=== PATIENT | female | born 1970 | race Caucasian/White ===

== ENCOUNTER 2019-03-11 08:51 | Inpatient (IN) | payer OTHER, MEDICAID, SELFPAY ==
[2019-02-07 13:39] VITALS: BMI 25.2
[2019-03-11] VITALS (28 sets, daily range): BP systolic 62–149; BP diastolic 30–85; PULSE 40–92; RESP 8–20; TEMP 36.2–37.2; O2SAT 95–100; BMI 25.2
--- NOTE | 2019-03-11 | PATH_ITS ---
[facility] Accession Number: [id number] . 01 Material submitted: . PART A: uterus - UTERINE FIBROID PART B: uterus - UTERUS AND BILATERAL FALLOPIAN TUBES . 02 Diagnosis: A. Uterine Fibroid, Excision (Weight 1,127 Grams): Leiomyoma with patchy hyalinization (18.5 x 13.8 x 9.7 cm). Negative for atypia or malignancy. . B. Uterus And Bilateral Fallopian Tubes, Hysterectomy And Bilateral Salpingectomy (Weight 833 Grams): Proliferative endometrium; negative for glandular hyperplasia, cytologic atypia, or malignancy. Intramural leiomyoma (6.2 cm in greatest dimension); negative for atypia or malignancy. Uterine serosa with no significant histomorphologic abnormality. Fallopian tube #1 with no significant histomorphologic abnormality. Fallopian tube #2 with no significant histomorphologic abnormality.. . . . . . I 03/18/2019 1100 Local . 02 Electronically signed: . Karissa Angel MD, Pathologist NPI- [id number] . 01 Gross description: . (A) Received in formalin, labeled uterine fibroid, is a dasilva-white rubbery mass (1,127 grams, 18.5 x 13.8 x 9.7 cm) with a white whorled homogenous cut surface. Ichthyology Teacher tissue is submitted in cassettes A1-A10. (B) Received in formalin, labeled uterus + bilateral fallopian tubes, is a uterus (833 grams, 7.5 cm AP, 15.5 cm SI, 13.0 cm ML) with attached fimbriated fallopian tubes (tube #1: length-6.8 cm, diameter-0.4 cm; tube #2: length-6.3 cm, diameter-0.4 cm). The cervix and ovaries are absent. The specimen is distorted, and the anterior and posterior cannot be determined. The endometrium (average thickness-0.2 cm) is gray-white smooth and flat. The myometrium (thickness-3.5 cm) is gray-white and contains a solid firm white whorled well-circumscribed homogenous mass (6.2 x 5.0 x 3.5 cm). The serosa is dasilva-gray smooth and shiny. The fallopian tubes have gray smooth and shiny serosa and gray unremarkable lumens. Section code: (B1-B4) endomyometrium; (B5-B7) endomyometrium, opposite side; (B8) fallopian tube #1, sales representative malt liqu[employer] serial sections; (B9-B10) fimbria #1, bivalved, entirely submitted; (B11) fallopian tube #2, sales representative malt liquors serial section; (B12-B13) fimbria #2, bivalved, entirely submitted. ([id number]) /[facility] 03/15/[address] [place] [address] . Pathologist provided ICD-10: D25.9 . 02 CPT . 195607, [id number] Performed at: 01 [facility] [address] [place] [address], [place], [place] [id number] MD Len Mckeon MD Phone: [phone] Performed at: 02 [facility] [address] [place] [id number] MD Sarah Fuller MD Phone: [phone]
[2019-03-11] MEDS: LACTATED RINGERS 1,000 ML 42 ML IV ×3 (09:24→13:16)
[2019-03-11] MEDS: SCOPOLAMINE 1 PATCH TOP (09:28)
[2019-03-11] MEDS: CEFAZOLIN 2 GM/100 ML FROZ.PIGGY IV (10:15)
--- NOTE | 2019-03-11 10:33 | SUR.OPER ---
Supine on padded OR bed, head on pillow, arms secured on padded arm boards at <90 degrees abduction, legs uncrossed, safety belt at thigh, tape over blanket over lower legs.
[2019-03-11] MEDS: SODIUM CHLORIDE 0.9% 30 ML, VASOPRESSIN 20 UNIT INJ (10:39)
--- NOTE | 2019-03-11 12:13 | SUR.PHASEI ---
Arrived with airway, 02 added, airway out. Breathing nonlabored. pt medicated for pain.
--- NOTE | 2019-03-11 12:18 | SUR.PHASEI ---
Report attempted, RN not available.
--- NOTE | 2019-03-11 12:23 | SUR.PHASEI ---
Hailey called back, report given
[2019-03-11] MEDS: METOCLOPRAMIDE 10 MG/2 ML INJ IV (12:31)
[2019-03-11] MEDS: ONDANSETRON 4 MG/2 ML INJ IV ×2 (12:37→16:04)
--- NOTE | 2019-03-11 12:40 | SUR.PHASEI ---
Pt became nauseated when ready for transfer, BP low and HR low, treated with IV fluid, cool wash cloth to head and queaze ease to bedside, HOB lowered. BP gradually came up. In talking with pt, she stated she gets car sick easily and has a hx of post op nausea.
[2019-03-11] MEDS: HYDROMORPHONE 2 MG INJ IV (13:06)
--- NOTE | 2019-03-11 13:14 | SUR.PHASEI ---
BP, HR back to normal, shakes started, bare hugger applied, and now resolved, pt had increased pain with shakes and pain treated with Dilaudid.
--- NOTE | 2019-03-11 13:21 | SUR.PHASEI ---
Pain improved, belly remains soft, abdominal dressing c/d/i as well as peripad.
--- NOTE | 2019-03-11 13:56 | SUR.PHASEI ---
Pt transported upstairs to room 221 and left in stable condition.
[2019-03-11] MEDS: LACTATED RINGERS 1,000 ML 100 ML IV (14:00)
--- NOTE | 2019-03-11 14:16 | PC.NURSE ---
Addendum entered by Jaylene Mcmahon R.N. 03/11/19 14:29: Pt has a roberts catheter that is patent and draining yellow urine. Original Note: Assess- Pt is a&ox3. Up to floor at 1345. Patient having some nausea down stairs and shakes. Was given zofran and reglan at 1230. Pt also has queezies at bed side. She has an aquacel dressing to her lower abdomen that is clean, dry, and intact. Dara Pad also in place without drainage. She states that she does have nausea at times, emesis bag at bedside. Patient has bear hugger applied to her for warmth and pacu will be up to get this later on today. IVF is LR and infusing through iv to r.side. Tolerating well. Patient has no other skin issues accept for aquacel dressing and dara pad in place. She is comfortable now. Down in pacu pts bp low. Stable now, given a sip of water and she has her at bedside.
[2019-03-11] MEDS: LACTATED RINGERS 1,000 ML 1000 ML IV ×2 (15:50→22:26)
[2019-03-11] MEDS: OXYCODONE/ACETAMINOPHEN 5/325 TABLET 2 TAB PO ×2 (16:01→20:33)
[2019-03-11] MEDS: KETOROLAC 30 MG/ML VIAL IV (17:04)
[2019-03-11] MEDS: LACTATED RINGERS 500 ML 1000 ML IV (18:15)
[2019-03-11] MEDS: HYDROMORPHONE 0.5 MG INJ IV (18:15)
[2019-03-11] MEDS: DOCUSATE 250 MG CAPSULE PO (20:35)
[2019-03-11 22:16] LABS: Hematocrit 28.4 % (36-46); Hemoglobin 9.5 g/dL (12.0-16.0)
[2019-03-11 22:37] LABS: B Type Natriuretic Peptide < 100 (<100)
[2019-03-12] VITALS (7 sets, daily range): BP systolic 94–118; BP diastolic 49–67; PULSE 58–87; RESP 16–18; TEMP 36.4–37.1; O2SAT 95–97
[2019-03-12] MEDS: LACTATED RINGERS 1,000 ML 125 ML IV ×2 (00:04→07:53)
[2019-03-12] MEDS: KETOROLAC 30 MG/ML VIAL IV ×2 (02:01→12:52)
[2019-03-12] MEDS: OXYCODONE/ACETAMINOPHEN 5/325 TABLET 2 TAB PO ×2 (02:40→07:44)
[2019-03-12 05:36] LABS: Add Manual Diff / Slide Review NO; Basophils Absolute Auto 0 /uL (0-100); Basophils Percent Auto 0.1 % (0-2); Eosinophils Absolute Auto 0 /uL (0-450); Eosinophils Percent Auto 0.1 % (2-4); Hematocrit 26.2 % (36-46); Hemoglobin 8.8 g/dL (12.0-16.0); Lymphocytes Absolute Auto 1900 /uL (1100-4500); Lymphocytes Percent Auto 13.2 % (25-40); Mean Corpuscular HGB Conc 33.5 % (30-36); Mean Corpuscular Volume 92.4 fL (80-100); Monocytes Absolute Auto 1000 /uL (0-900); Monocytes Percent Auto 7.2 % (3-14); Neutrophils Absolute Auto 11100 /uL (1500-7000); Neutrophils Percent Auto 79.4 % (50-75); Platelet Count 230 X10^3/uL (150-400); Red Blood Cell Count 2.84 X10^6/uL (4.0-5.2); Red Cell Distribution Width 13.2 % (11.6-14.8)
[2019-03-12] MEDS: LEVOTHYROXINE 88 MCG TABLET PO (05:39)
--- NOTE | 2019-03-12 06:19 | PC.NURSE ---
Requested not to discontinue her roberts this morning, states will take it out once I start moving more or get OOB latecont. POC & montr on this morning. No vaginal bleeding noted, no C/O abdominal cramping. Reported still painful when I repositioned. Will cont. POC & monitor.
--- NOTE | 2019-03-12 08:04 | PC.NURSE ---
Addendum entered by Doreen Angulo R.N. 03/12/19 14:12: GI/PAIN - lying in bed on l side, states has been passing flatus, abd, r shoulder discomfort 5-6 on scale 0/10, prefers to wait and use narcotic if needed later night, given 650mg po tylenol now. Addendum entered by Doreen Angulo R.N. 03/12/19 13:01: MS/PAIN - Dr. Mclaughlin in while pt very slowly mobilizing from chair back to bed, still limited po, applesauce, fluids, Dr. Mclaughlin in and prefers pt have toradol and will add scheduled ibuprofen and limit narcotics, pt states abd discomfort 4 on scale 0/10, pt r shoulder referred discomfort 9/10 when up moving, when repositioned comfort, given 30mg iv toradol, per Dr. Mclaughlin, decr ivf to 75ml/hr and will leave in roberts overnight and order dc for tomorrow am, pt has own ice pack for her binder that is ok'd by and it was placed in refrig (not freezer per MD) and pt can put it in the pouch of her binder. Addendum entered by Doreen Angulo R.N. 03/12/19 10:52: MS/PAIN - pt able sleep after percocet, when awakened, discussed mobilization, pt is very reluctant and anxious to get oob, discussed mobilizing slowly with assistance, pt had brought in her own binder and requested it be placed on her abd, also with splint, very slowly repositioned to dangle position and very slowly stood w/fww to steady, reports some initial dizziness when up, able to take a few steps to chair, bp 106.60, hr 60, ra 97% Original Note: AM NOTE - pt is awake, using splint, states abd discomfort 4 on scale 0/10, req percocet, declines the toradol as she states was informed by nursing staff has a 4 dose limit and wants to save for future, discussed advising rn if needed as md can be contacted, dale earlier yogurt and applesauce during night, no nausea, +bt, no flatus yet, given percocet po x 2 tabs with applesauce, scd on, hr reg 68, ra 96%, roberts w/clear, pale yellow urine, discussed mobilization after breakfast to chair.
[2019-03-12] MEDS: DOCUSATE 250 MG CAPSULE PO ×2 (10:06→21:41)
--- NOTE | 2019-03-12 12:57 | P.OP_ITS ---
Operative Date/Time/Diagnoses Date of procedure: 03/11/19 Time of procedure: 12:45 Pre-op diagnosis: Pelvic pain Enlarged fibroid uterus Menorrhagia Anemia Post-op diagnosis: same Procedure & Clinicians Procedure: Procedures Operation Date: 03/11/19 10:00 Actual Procedures Side Surgeon p Abdominal Open Supracervical Hysterectomy W/ Removal of Both Tubes Alejandra Mclaughlin MD Indications: Menorrhagia Anemia Enlarged fibroid uterus Pelvic pain Surgeon: Alejandra Mclaughlin [employer] Membership Sales Agent: Piper Cowart Anesthesia Type: General Operative Notes Findings: Twenty week size multi fibroid uterus Right ovarian cyst measuring 2.5 cm Normal tubes Normal left ovary Largest fibroid measuring 15 x 10 cm Normal appendix Closure Type: primary Specimen(s): left tube, right tube and uterus Applied: catheter (To continuous drainage) Estimated blood loss (mL): 250 Blood products transfused: none Procedure in detail: The patient was taken to the operating room where she was placed in the dorsal supine position. After adequate general endotracheal anesthesia was achieved, she was prepped and draped in the usual sterile fashion. A time-out was performed. A Pfannenstiel incision was made 4 fingerbr eadths above the pubic symphysis. This was carried through to the underlying layer of fascia. The fascia was nicked in the midline and the incision extended bilaterally with the Lopez scissors. The superior aspect of the fascial incision was grasped with the Sasha clamps, elevated, and underlying fascia was dissected off bluntly and with the Bovie. This was repeated on the inferior aspect of the fascial incision. The rectus muscles were in the midline. The peritoneum was identified, grasped between 2 hemostats, and entered sharply with the Metzenbaum scissors. This incision was extended superiorly and inferiorly with good visualization of the bladder. The large Gee retraction system was placed into the incision. Approximately 10 cc of a Pitressin solution, 20 units of Pitressin in 30 cc of normal saline, were injected from the fundus of the uterus approximately 6 cm down towards the lower uterine segment. Using the Bovie, the serosa, and uterine wall were opened. Once the capsule of the fibroid was seen, a 4 tooth tenaculum was placed on the fibroid and it was removed bluntly using a scalpel handle without blade. The most posterior portion of the fibroid was removed using the Bovie. The fibroid was handed off for specimen. The 4 tooth tenaculum was then placed on the uterus. The round ligaments on both sides were doubly clamped, transected, and suture ligated with 0 Vicryl, and tagged with hemostats. The anterior and posterior peritoneum were entered. The tube was grasped on the right side with a Squire. The tube was from the mesosalpinx using the Bovie and a suture if bleeding was encountered. The utero-ovarian ligaments were then clamped with Sasha clamps, transected, free tied with 0 Vicryl and then suture ligated with 0 Vicryl. Hemostasis was achieved. All of this was repeated on the patient's left side. The uterine arteries were skeletonized bilaterally, doubly clamped, transected, and suture ligated with 0 Vicryl. Hemostasis was achieved. The bladder flap was created with the Metzenbaum scissors and then bluntly with a moistened sponge stick and was taken down off the lower uterine segment and cervix. This was done prior to the uterine arteries being clamped. Using the Bovie, the uterus was amputated from the cervix. The cervix was closed with a series of simple interrupted sutures using 0 Vicryl. Prior to the closure of the cervix the cervix was cauterized with the Bovie. There was a small amount of bleeding from the left side of the cervix and an 0 Vicryl suture was placed for hemostasis. The pelvis was copiously irrigated with warm normal saline. There was no bleeding noted. The tag sutures were cut. The the Gee retractor was removed from the incision. The peritoneum was grasped with hemostats and closed with 2 0 Vicryl in a running fashion. The fascia was reapproximated using 0 Vicryl in a running fashion. Hemostasis was achieved in the subcutaneous layer using the Bovie. The subcutaneous layer was then irrigated with warm normal saline. Six simple interrupted sutures with 3 0 Vicryl were placed to reapproximate the subcutaneous layer. The skin was closed with 4-0 Biosyn in a subcuticular fashion. Steri-Strips were placed. An Aquacel dressing was placed. Sponge, lap, and instrument counts were correct x2. The patient tolerated the procedure well, and was taken to PACU in stable condition. Complications: none Post-operative Condition: stable Disposition: PACU Plan for aftercare: To Acute Care after recovery
--- NOTE | 2019-03-12 13:05 | CM.IDA ---
Discharge Planning/Care Management CM Discharge Assessment Start: 03/12/19 13:01 Freq: Status: Active Protocol: Document 03/12/19 13:01 TIGRE (Rec: 03/12/19 13:05 TIGRE [id number]) Discharge Planning Assessment Assigned Room Server JESSE Reis DPOA/Assigned Designee Name Suraj Bhatt, partner Contact Information [phone] Primary Care Provider Calli Cobb Advance Directives? No History Provided By Patient,Family Member,Medical Record Prior Living Arrangements House Household Members spouse,significant other, children Type of transporation used prior to Drives own vehicle admit Independent with ADL's Yes Is patient alert and oriented? Yes Barriers to Discharge No Comment Met w/pt and partner at bedside this morning to introduce role. Pt has prepared to return home Thursday per Dr Mclaughlin's instruction for two night stay. Pt feels confident that she has plenty of assistance from partner, teenage children and friends on [place]. Pt has no concerns and identifies no SW needs at this time. This SURVEILLANCE SYSTEM MONITOR available in case DC questions or concerns arise. Discharge Plan Home Transportation Arrangement family Referrals Initiated None needed Review Status In Process
--- NOTE | 2019-03-12 13:06 | PM.PNPO.1 ---
Subjective Subjective Date Patient Seen: 03/12/19 Time Patient Seen: 13:06 Interval history: Patient is postop day # 1 status post abdominal supracervical hysterectomy with bilateral salpingectomy. Last evening she had a few episodes of low blood pressure, without elevated pulse. She had marginal urine output. She received a bolus which helped urine output. She then had the Duncan catheter readjusted and had 925 cc of urine out. Her pain has been controlled. She has ambulated to a chair. She is tolerating a diet. She has passed flatus this morning. Exam Vital Signs (past 8 hours): - 03/12/19 07:50 03/12/19 11:00 Temperature 97.6 F 98.6 F Pulse Rate 65 58 L Respiratory Rate 16 17 Blood Pressure 99/62 106/60 Pulse Oximetry 96 97 Oxygen Delivery Method Room Air Oxygen Flow Rate 0 Narrative Exam Narrative: Generally: Patient lying in bed, no acute distress Lungs: Clear to auscultation bilaterally Cardiovascular: Regular rate and rhythm Abdomen: Soft and flat. Good bowel sounds. Incision: Clean dry and intact with Aquacel dressing Extremities: Negative Homans, no edema Objective Labs Result Diagrams: 03/12/19 04:55 Labs: Laboratory Results - last 24 hr 03/11/19 03/12/19 22:05 04:55 WBC 14.0 H RBC 2.84 L Hgb 9.5 L 8.8 L Hct 28.4 L 26.2 L MCV 92.4 MCH 31.0 MCHC 33.5 RDW 13.2 Plt Count 230 Neut % (Auto) 79.4 H Lymph % (Auto) 13.2 L [place] % (Auto) 7.2 Eos % (Auto) 0.1 L Baso % (Auto) 0.1 Neut # (Auto) 05368 H Lymph # (Auto) 1900 [place] # (Auto) 1000 H Eos # (Auto) 0 Baso # (Auto) 0 B-Natriuretic Peptide < 100 Assessment & Plan Post-op Postoperative Procedures: Procedures Operation Date: 03/11/19 10:00 Actual Procedures Side Surgeon p Abdominal Open Supracervical Hysterectomy W/ Removal of Both Tubes Alejandra Mclaughlin MD Postoperative day: 1 Postoperative status: doing well and urinary retention (Due to a catheter kinking) Postoperative plan: see orders, ambulate and advance diet Postoperative plan narrative: Add ibuprofen 600 mg every 6 hours after Toradol finished Add Tylenol 650 mg every 6 hours as needed Discontinue Duncan catheter March 13, 2019 at 6:00 a.m. Add 1 Percocet every 4 hours as needed Time Spent With Patient Time with patient: 15-24 minutes Quality VTE Deep Vein Thrombosis/Pulmonary Embolism Present on Admission: No
[2019-03-12] MEDS: ACETAMINOPHEN 325 MG TABLET 650 MG PO ×2 (14:07→21:40)
[2019-03-12] MEDS: IBUPROFEN 600 MG TABLET PO ×2 (17:58→23:52)
[2019-03-12] MEDS: LACTATED RINGERS 1,000 ML 75 ML IV (18:08)
[2019-03-12] MEDS: OXYCODONE/ACETAMINOPHEN 5/325 TABLET 1 TAB PO (18:48)
--- NOTE | 2019-03-12 23:20 | PC.NURSE ---
Patient was able to ambulate around the room. Ibuprofen and Tylenol were alternated with Percocet given 1x. Patient states that pain is better controlled this evening than prior. She says she is unsure about her ability to go home tomorrow. Duncan remains, to be removed at 6am. LR is running @ 75ml/hr.
[2019-03-13] MEDS: ACETAMINOPHEN 325 MG TABLET 650 MG PO ×2 (03:33→11:16)
--- NOTE | 2019-03-13 03:57 | PC.NURSE ---
0350 Pt. C/O burning sensation in her vaginal area, states I'm concerned about infection, I had UTI last January. Requested to discontinue her roberts catheter, DC'd her roberts catheter & tolerated procedure. Then she started crying, asked her what's wrong she replied I'm just to emotional right now. Spouse at the bedside & very supportive to pt's. needs. Instructed to call for assistance to use the BSC & call light within reach. Will monitor.
[2019-03-13 04:30] VITALS: BP 130/70; PULSE 62; RESP 16; TEMP 37.1; O2SAT 93
[2019-03-13] MEDS: LEVOTHYROXINE 88 MCG TABLET PO (05:19)
[2019-03-13] MEDS: IBUPROFEN 600 MG TABLET PO ×2 (06:32→12:47)
[2019-03-13] MEDS: OXYCODONE/ACETAMINOPHEN 5/325 TABLET 1 TAB PO ×2 (06:38→15:00)
[2019-03-13] MEDS: LACTATED RINGERS 1,000 ML 75 ML IV (07:09)
[2019-03-13 08:00] VITALS: BP 115/63; PULSE 70; RESP 16; TEMP 36.9; O2SAT 97
[2019-03-13] MEDS: DOCUSATE 250 MG CAPSULE PO (08:39)
--- NOTE | 2019-03-13 15:19 | PC.NURSE ---
Discharge Pt will go home shortly after this change of shift. d/c instructions provided to pt and her SO. aware to f/u with Dr Cowart in 6 weeks and for to remove dressing on 03/18. PIV removed prior to d/c. Pt states she is taking all belongings with her. is packing up room and taking down to car. Pt aware to push call light when she is ready to leave. Report given to oncoming RN and RAILCAR MECHANIC that pt to leave shortly.
--- NOTE | 2019-03-22 14:41 | PM.DS.1 ---
History of Present Illness History of Present Illness Date Patient Seen: 03/13/19 Time Patient Seen: 09:00 Chief complaint: [id number] Discharge Providers Provider Date of admission: 03/11/19 08:51 Discharge Date: 03/13/19 Primary care physician: Calli Cobb Discharge provider: Alejandra Mclaughlin MD Summary Hospital Course Discharge Diagnosis: Enlarged fibroid uterus Menorrhagia Anemia Status post abdominal supracervical hysterectomy with bilateral salpingectomy Hospital Course: Patient is a 49-year-old who was admitted on March 11, 2019 for a scheduled abdominal supracervical hysterectomy with bilateral salpingectomy. She underwent this procedure without complication. Her postoperative course was unremarkable and she was discharged home on postop day # 2. She was tolerating a diet, pain was well controlled, she was ambulating, and was voiding without catheter. Status at Discharge Cognitive/behavioral status at discharge: oriented Functional status at discharge: independent ambulation Overall status at discharge: patient is progressing back to baseline Exam Vital Signs (past 8 hours): Oxygen Delivery Method Room Air Oxygen Flow Rate 0 Narrative Exam Narrative: Generally: Patient is sitting up in bed, no acute distress Lungs: Clear to auscultation bilaterally Cardiovascular: Regular rate and rhythm Abdomen: Soft and flat. Incision: Clean dry and intact with Aquacel dressing Extremities: Negative Homans, no edema Objective Labs Result Diagrams: 03/12/19 04:55 Discharge Plan Discharge Plan Patient Disposition: Home Discharge comment: Call with fever, chills, redness or drainage around incision or bleeding vaginally more than spotting to light Ibuprofen 600mg every 6 hours Tylenol or Percocet every 6 hours No heavy lifting Discharge orders & Medications Prescriptions: New oxycodone-acetaminophen [Percocet] 5-325 mg tablet 1 tab PO Q4-6H PRN (Reason: pain) Qty: 30 RF: 0 Continued epinephrine [EpiPen 2-Toney] 0.3 MG/0.3 ML auto-injector 0.3 mg IM SEE INSTRUCTIONS Qty: 1 RF: 0 levothyroxine 88 mcg capsule 88 mcg PO DAILY RF: 0 levothyroxine 88 mcg tablet 88 mcg PO DAILY RF: 0 multivitamin Tablet 1 tab PO DAILY RF: 0 Vitamin C Powder 1 g PO DAILY RF: 0 ferrous sulfate [Iron (ferrous sulfate)] 325 mg (65 mg iron) Tablet 325 mg PO DAILY RF: 0 Follow up/Referrals: Piper Cowart MD [Physician] - 6 Weeks Diet/Activity/Treatments Diet: Regular Activity: No heavy lifting, nothing more than a gallon of milk May drive after stop taking Percocet Cold/Heat Therapy: Ice to incision Skin/Wound/Dressing Care Report to your healthcare provider any signs of infection, such as:: chills, fever, increased pain, unusual drainage and unusual redness Dressing: may remove Aquacel dressing next Sunday 03/18 Visit Report/Discharge Packet Instructions: Hysterectomy -- Open Surgery, DI for Hysterectomy, DI for Prescription Opioid Use Visit Report Forms: Patient Portal/API, Stroke Signs & Symptoms Discharge Data Primary Care Provider: Calli Cobb Discharges patient from system. Discharge Date/Time: 03/13/19 15:50 Quality VTE Deep Vein Thrombosis/Pulmonary Embolism Present on Admission: No
== END 2019-03-13 15:50 | disposition home or self-care (01) | DRG 519 ==
PROVIDERS: Admitting Provider Obstetrics & Gynecology; PCP Nurse Practitioner Family; Visit Provider Obstetrics & Gynecology
PROC: 0UT90ZZ Resection of Uterus, Open Approach (ICD-10-PCS; CPT 58150; principal; 2019-03-11 10:00)
DX: D25.9 Leiomyoma of uterus, unspecified (principal); N92.0 Excessive and frequent menstruation with regular cycle; D64.9 Anemia, unspecified; R10.2 Pelvic and perineal pain; R33.8 Other retention of urine; Y84.6 Urinary catheterization as the cause of abnormal reaction of the patient, or of later complication, without mention of misadventure at the time of the procedure; E03.9 Hypothyroidism, unspecified
CPT/HCPCS: 36415; 58180; 83880; 85014; 85018; 85025; J0690; J1100; J1170; J1885; J2405; J2704; J2765; J3010

== ENCOUNTER → 2020-02-20 09:55 | Outpatient (CLI) | payer OTHER, MEDICAID, SELFPAY ==
[2019-03-11 14:10] VITALS: BMI 25.2
== END ==
PROVIDERS: PCP Nurse Practitioner Family; Visit Provider Specialist
DX: R30.0 Dysuria (principal)
CPT/HCPCS: 87086

== ENCOUNTER → 2020-02-28 12:40 | Outpatient (CLI) | payer OTHER, MEDICAID, SELFPAY ==
[2019-03-11 14:10] VITALS: BMI 25.2
--- NOTE | 2020-02-28 | DI.CT.S_ITS ---
PROCEDURE: CT KIDNEY URETER BLADDER (KUB) INDICATIONS: Hematuria,unspecified TECHNIQUE: Noncontrast 5 mm thick sections acquired from the diaphragms to the symphysis. 5 mm thick coronal and sagittal reformats were then performed. For radiation dose reduction, the following was used: automated exposure control, adjustment of mA and/or kV according to patient size. COMPARISON: [facility], , PELVIC COMPLETE, 05/20/2017, 8:54. [facility], , PELVIC COMPLETE, 11/03/2018, 14:23. FINDINGS: Image quality: Excellent. Lung bases: Lung bases are clear. Heart size is normal. Urinary system: Both kidneys are normal in size. No kidney stones. No hydronephrosis or perinephric fat stranding. Both ureters appear non-dilated throughout their expected courses. Bladder wall thickness is normal; no calcified bladder stones. Other solid organs: Liver is normal in size. There is a 0.8 cm low-density nodule in the lateral aspect of the anterior segment of the right hepatic lobe, most likely a cyst. Gallbladder is normal. Pancreas is normal in contours. Spleen is normal in size. No adrenal nodules. Peritoneum and bowel: Unenhanced bowel loops demonstrate normal wall thickness and caliber. Moderate amount of stool in colon. No free fluid or air. Nodes and vessels: No retroperitoneal or mesenteric adenopathy by size criteria. Aorta and inferior vena cava are normal in caliber. Abdominal wall: No ventral hernias. Pelvis: There is hysterectomy. Remanent uterus or prominent uterine cuff is noted. Ovaries are unremarkable. Trace free pelvic fluid is likely within physiological limits. No inguinal hernias or adenopathy. Bones: No suspicious bony lesions. No vertebral body compression fractures. IMPRESSION: 1. A cause for hematuria is not identified on CT. No renal stone or hydronephrosis. If hematuria persists, CT IVP may be helpful. 2. Hysterectomy. 3. Moderate amount stool in colon. Dictated by: Brian Zafar M.D. on 02/28/2020 at 14:10 Approved by: Brian Zafar M.D. on 02/28/2020 at 17:29
== END ==
PROVIDERS: PCP Naturopath; Referring Provider Naturopath; Visit Provider Naturopath
DX: R31.9 Hematuria, unspecified (principal); Z90.710 Acquired absence of both cervix and uterus
CPT/HCPCS: 74176

== ENCOUNTER 2020-06-28 13:00 | Outpatient (RCR) | payer OTHER, MEDICAID, SELFPAY ==
[2019-03-11 14:10] VITALS: BMI 25.2
--- NOTE | 2020-03-08 16:02 | PT.OIE ---
Current Diagnoses Overactive bladder (03/08/20) Other female genital prolapse (03/08/20) Pelvic and perineal pain (03/08/20) Acquired absence of uterus with remaining cervical stump (03/08/20) Past Medical History (Last Updated 02/07/19 @ 14:11 by Gretta Maldonado RN) Anemia Chicken pox Fibroids Gluten intolerance Heavy menstrual period Hypothyroidism Past Surgical History (Last Updated 02/07/19 @ 14:09 by Gretta Maldonado RN) Anesthesia History of dental surgery History of hand surgery (~1979) Visit Care Team Role Provider Type Sarita Antonio ND Primary Care Provider Non-Staff Specialty: Naturopathy Address: [address] [place] [address], [id number] Email: Piper Cowart MD Attending Provider Physician Referring Provider Specialty: HRIS SPECIALIST Address: [address] [place] [address], [id number] Email: [email or web address] Physical Therapy Initial Evaluation PT-OP-A Visit Information Start: 03/08/20 10:06 Freq: Status: Active Protocol: Document 03/08/20 12:45 AMB (Rec: 03/08/20 14:28 AMB [email or web address]) Out-Patient Physical Therapy Visit Information Visit Information Visit Type Initial Evaluation Visit Start Time 12:45 Visit Stop Time 13:30 Total Visit Minutes 45 Visit Number 1 PT-OP-B Current Condition Start: 03/08/20 10:06 Freq: Status: Active Protocol: Document 03/08/20 12:45 AMB (Rec: 03/08/20 14:28 AMB [email or web address]) Current Condition History of Current Condition Onset Date February 2019 Current Complaints pelvic pain, urgency History of Current Condition Mayra had a hysterectomy for fibroids in February and rested for a while, and then went back to work. Her pain increased signficantly. 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 She is down to working 2 hours a day doing [employer] due to the pain. She describes it as a rawness in her pelvic floor that radiates into her abdomen. Does note urgency and burning with urination when pain is at its worst, when she does rest she feels better. Has avoided intercourse due to the pain. Personal Factors Other Personal Factors That May Effect Lives on [place]- has to Therapy/Recovery take [place] to get to PT PT-OP-C Subjective Start: 03/08/20 10:06 Freq: Status: Active Protocol: Document 03/08/20 12:45 AMB (Rec: 03/08/20 16:02 AMB [email or web address]) Patient Questionnaires Pelvic Pain and Urgency/Frequency Patient Symptom Scale Pelvic Pain Score 23 PT-OP-I Pelvic Floor Start: 03/08/20 10:06 Freq: Status: Active Protocol: Document 03/08/20 12:45 AMB (Rec: 03/08/20 15:45 AMB [email or web address]) Pelvic Floor Assessment Urine Pelvic Floor Surgery Yes: open hysterectomy Urinary Symptoms Dysuria,Urge Sensation, Dribbling After Urination,Pain Leaks Per Day denies Voiding Frequency every 2 hours Nocturia 2 Bowel Other Bowel Symptoms burning with bowel movements when painful Pelvic Clock Pelvic Clock 12-3 Hypertonic,Tenderness, Tightness Pelvic Clock 9-12 Hypertonic,Tenderness, Tightness Pelvic Clock Other Tenderness and tightness at ischiocavernosus and deep transverse perineal as well as levator ani and obturator internus L>R Prolapse Cystocele Grade 1 Contraction Ability Voluntary Contraction Moderate Voluntary Relaxation Weak Manual Muscle Testing Left 3 Manual Muscle Testing Right 3 Manual Muscle Testing Anterior 2 Manual Muscle Testing Posterior 3 PT-OP-T Assessment and Plan Start: 03/08/20 10:06 Freq: Status: Active Protocol: Document 03/08/20 12:45 AMB (Rec: 03/08/20 16:02 AMB [email or web address]) Physical Therapy Assessment Rehab Potential Rehabilitation Potential Good Evaluation Complexity Number of Personal Factors/Comorbidities 1-2 Number of Body Systems Impaired 4 or More Clinical Presentation at Evaluation Evolving Impairments Impairments Pain,Soft Tissue Mobility, Strength,Tone Goals Three Impairment Urgency Short Term Goal (STG) Llewellyne will decrease her urgency so that she does not have nocturia. STG Duration 4 weeks Alf Goal (LTG) Llewellyne will take the time to fully void her bladder to avoid urgency after voids. LTG Duration 8 weeks Two Impairment Pain Short Term Goal (STG) Llewellyne will use a dilator with 1/10 pain or less. STG Duration 4 weeks Alf Goal (LTG) Llewellyne will work for 4 hours with 3/10 pain or less. LTG Duration 8 weeks One Impairment Lifting Short Term Goal (STG) Mayra will lift 25# from floor to waist height while maintaining pelvic floor contraction without an increase in pain. STG Duration 4 weeks Assessment Summary Assessment Mayra atteds physical therapy with tenderness and tightness at anterior and L>R pelvic floor. She did have mild pelvic floor weakness, but we would prefer to first work on her tightness and pain and then work on her strength . Given that she will need to return to a high level of function to return to work (up and down on ladders, shoveling, lifting heavy) therapy will eventually need to work on strengthening once her pain at rest is minimized. Physical Therapy Plan Frequency and Duration Frequency of Treatment 1x/Week Duration of Treatment 12 weeks Plan of Care Start Date 03/08/20 Plan of Care End Date 05/31/20 Therapeutic Interventions Therapeutic Interventions Home Exercise Program,Manual Therapy,Neuromuscular Re- education,Self-Care/Home Management,Therapeutic Activities,Therapeutic Exercises Modalities Biofeedback,Cold Pack/Ice Massage,Electric Stimulation, Hot Packs Next Visit Focus/Plan Next Note Type Treatment Note Next Visit Plan Pelvic stretching, relaxation, manual therapy to reduce tension
--- NOTE | 2020-03-08 16:03 | PT.OPPOC ---
Physical, Occupational & Speech Therapy At [facility] Current Diagnoses Overactive bladder (03/08/20) Other female genital prolapse (03/08/20) Pelvic and perineal pain (03/08/20) Acquired absence of uterus with remaining cervical stump (03/08/20) Visit Care Team Role Provider Type Sarita Antonio ND Primary Care Provider Non-Staff Specialty: Naturopathy Address: [address] [place] [address], [id number] Email: Piper Cowart MD Attending Provider Physician Referring Provider Specialty: COMMERCIAL FRONT LOAD DRIVER Address: [address] [place] [address], [id number] Email: [email or web address] Plan Of Care PT-OP-T Assessment and Plan Start: 03/08/20 10:06 Freq: Status: Active Protocol: Document 03/08/20 12:45 AMB (Rec: 03/08/20 16:02 AMB [email or web address]) Physical Therapy Assessment Rehab Potential Rehabilitation Potential Good Evaluation Complexity Number of Personal Factors/Comorbidities 1-2 Number of Body Systems Impaired 4 or More Clinical Presentation at Evaluation Evolving Impairments Impairments Pain,Soft Tissue Mobility, Strength,Tone Goals Three Impairment Urgency Short Term Goal (STG) Mayra will decrease her urgency so that she does not have nocturia. STG Duration 4 weeks [employer] Professional Goal (LTG) Mayra will take the time to fully void her bladder to avoid urgency after voids. LTG Duration 8 weeks Two Impairment Pain Short Term Goal (STG) Mayra will use a dilator with 1/10 pain or less. STG Duration 4 weeks [facility] Goal (LTG) Mayra will work for 4 hours with 3/10 pain or less. LTG Duration 8 weeks One Impairment Lifting Short Term Goal (STG) Mayra will lift 25# from floor to waist height while maintaining pelvic floor contraction without an increase in pain. STG Duration 4 weeks Assessment Summary Assessment Mayra atteds physical therapy with tenderness and tightness at anterior and L>R pelvic floor. She did have mild pelvic floor weakness, but we would prefer to first work on her tightness and pain and then work on her strength . Given that she will need to return to a high level of function to return to work (up and down on ladders, shoveling, lifting heavy) therapy will eventually need to work on strengthening once her pain at rest is minimized. Physical Therapy Plan Frequency and Duration Frequency of Treatment 1x/Week Duration of Treatment 12 weeks Plan of Care Start Date 03/08/20 Plan of Care End Date 05/31/20 Therapeutic Interventions Therapeutic Interventions Home Exercise Program,Manual Therapy,Neuromuscular Re- education,Self-Care/Home Management,Therapeutic Activities,Therapeutic Exercises Modalities Biofeedback,Cold Pack/Ice Massage,Electric Stimulation, Hot Packs Next Visit Focus/Plan Next Note Type Treatment Note Next Visit Plan Pelvic stretching, relaxation, manual therapy to reduce tension Plan of Care Dates Plan of Care Start Date 03/08/20 Plan of Care End Date 05/31/20 Electronically Signed by: Thania Shafer, PT 03/08/20 5600 Please Sign and Return: I have reviewed this Plan of Care and certify that the skilled therapy services above are required to meet the patient?s needs. Physician Signature Date Printed Name and Credentials Clinical Instructor Signature Printed Name and Credentials
--- NOTE | 2020-03-28 08:54 | PT.OTN ---
Current Diagnoses Overactive bladder (03/27/20) Other female genital prolapse (03/27/20) Pelvic and perineal pain (03/27/20) Acquired absence of uterus with remaining cervical stump (03/27/20) Physical Therapy Treatment Note PT-OP-A Visit Information Start: 03/08/20 10:06 Freq: Status: Active Protocol: Document 03/27/20 12:44 AMB (Rec: 03/27/20 13:38 AMB [email or web address]) Out-Patient Physical Therapy Visit Information Visit Information Visit Type Treatment Note Visit Start Time 12:45 Visit Stop Time 13:30 Total Visit Minutes 45 Visit Number 2 PT-OP-B Current Condition Start: 03/08/20 10:06 Freq: Status: Active Protocol: Document 03/08/20 12:45 AMB (Rec: 03/08/20 14:28 AMB [email or web address]) Current Condition History of Current Condition Onset Date February 2019 Current Complaints pelvic pain, urgency History of Current Condition Mayra had a hysterectomy for fibroids in February and rested for a while, and then went back to work. Her pain increased signficantly. 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 She is down to working 2 hours a day doing [employer] due to the pain. She describes it as a rawness in her pelvic floor that radiates into her abdomen. Does note urgency and burning with urination when pain is at its worst, when she does rest she feels better. Has avoided intercourse due to the pain. Personal Factors Other Personal Factors That May Effect Lives on [place]- has to Therapy/Recovery [place] PT-OP-C Subjective Start: 03/08/20 10:06 Freq: Status: Active Protocol: Document 03/27/20 12:44 AMB (Rec: 03/27/20 13:38 AMB [id number]) OP-PT Subjective Patient Comments Patient Comments R sided nervy pain after using the dilator for about, taking pain killers every 3-4 hours. PT-OP-I Pelvic Floor Start: 03/08/20 10:06 Freq: Status: Active Protocol: Document 03/08/20 12:45 AMB (Rec: 03/08/20 15:45 AMB [email or web address]) Pelvic Floor Assessment Urine Pelvic Floor Surgery Yes: open hysterectomy Urinary Symptoms Dysuria,Urge Sensation, Dribbling After Urination,Pain Leaks Per Day denies Voiding Frequency every 2 hours Nocturia 2 Bowel Other Bowel Symptoms burning with bowel movements when painful Pelvic Clock Pelvic Clock 12-3 Hypertonic,Tenderness, Tightness Pelvic Clock 9-12 Hypertonic,Tenderness, Tightness Pelvic Clock Other Tenderness and tightness at ischiocavernosus and deep transverse perineal as well as levator ani and obturator internus L>R Prolapse Cystocele Grade 1 Contraction Ability Voluntary Contraction Moderate Voluntary Relaxation Weak Manual Muscle Testing Left 3 Manual Muscle Testing Right 3 Manual Muscle Testing Anterior 2 Manual Muscle Testing Posterior 3 PT-OP-Q Treatments Start: 03/08/20 10:06 Freq: Status: Active Protocol: Document 03/27/20 12:45 AMB (Rec: 03/28/20 08:54 AMB [email or web address]) Therapeutic Exercises Supine Exercises 2 Supine Exercise Name pelvic relaxation stretch 1 Supine Exercise Name hip flexor stretch Reps/Minutes 5x10 Therapeutic Activity Therapeutic Activity 1 Name sitting posture education Comments avoiding anterior tilt and posterior pelvic tilt, neutral sitting alignment Manual Therapy Treatment Soft Tissue Mobilization 2 Body Location bladder superior glide 1 Body Location External at labia distraction PT-OP-T Assessment and Plan Start: 03/08/20 10:06 Freq: Status: Active Protocol: Document 03/27/20 12:45 AMB (Rec: 03/28/20 08:54 AMB [email or web address]) Physical Therapy Assessment Assessment Summary Assessment Some concern for pudendal neuralgia considering rawness and the irritability and length of time that Llewellyne . Deferred more internal work due to pt's increased sx after eval, but should return to these in the future. Physical Therapy Plan Next Visit Focus/Plan Next Note Type Treatment Note Next Visit Plan Pelvic stretching, relaxation, manual therapy to reduce tension
--- NOTE | 2020-04-06 16:08 | PT.OTN ---
Current Diagnoses Overactive bladder (04/06/20) Other female genital prolapse (04/06/20) Pelvic and perineal pain (04/06/20) Acquired absence of uterus with remaining cervical stump (04/06/20) Physical Therapy Treatment Note PT-OP-A Visit Information Start: 03/08/20 10:06 Freq: Status: Active Protocol: Document 04/06/20 14:15 AMB (Rec: 04/06/20 15:02 AMB [id number]) Out-Patient Physical Therapy Visit Information Visit Information Visit Type Treatment Note Visit Start Time 14:15 Visit Stop Time 15:00 Total Visit Minutes 45 Visit Number 3 PT-OP-B Current Condition Start: 03/08/20 10:06 Freq: Status: Active Protocol: Document 03/08/20 12:45 AMB (Rec: 03/08/20 14:28 AMB [email or web address]) Current Condition History of Current Condition Onset Date February 2019 Current Complaints pelvic pain, urgency History of Current Condition Mayra had a hysterectomy for fibroids in February and rested for a while, and then went back to work. Her pain increased signficantly. 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 She is down to working 2 hours a day doing [employer] due to the pain. She describes it as a rawness in her pelvic floor that radiates into her abdomen. Does note urgency and burning with urination when pain is at its worst, when she does rest she feels better. Has avoided intercourse due to the pain. Personal Factors Other Personal Factors That May Effect Lives on [place]- has to Therapy/Recovery [place] ferry [place] get to PT PT-OP-C Subjective Start: 03/08/20 10:06 Freq: Status: Active Protocol: Document 04/06/20 14:15 AMB (Rec: 04/06/20 15:02 AMB [id number]) OP-PT Subjective Patient Comments Patient Comments Two weeks of no hard labor, 4/ 10 pain PT-OP-I Pelvic Floor Start: 03/08/20 10:06 Freq: Status: Active Protocol: Document 03/08/20 12:45 AMB (Rec: 03/08/20 15:45 AMB [email or web address]) Pelvic Floor Assessment Urine Pelvic Floor Surgery Yes: open hysterectomy Urinary Symptoms Dysuria,Urge Sensation, Dribbling After Urination,Pain Leaks Per Day denies Voiding Frequency every 2 hours Nocturia 2 Bowel Other Bowel Symptoms burning with bowel movements when painful Pelvic Clock Pelvic Clock 12-3 Hypertonic,Tenderness, Tightness Pelvic Clock 9-12 Hypertonic,Tenderness, Tightness Pelvic Clock Other Tenderness and tightness at ischiocavernosus and deep transverse perineal as well as levator ani and obturator internus L>R Prolapse Cystocele Grade 1 Contraction Ability Voluntary Contraction Moderate Voluntary Relaxation Weak Manual Muscle Testing Left 3 Manual Muscle Testing Right 3 Manual Muscle Testing Anterior 2 Manual Muscle Testing Posterior 3 PT-OP-Q Treatments Start: 03/08/20 10:06 Freq: Status: Active Protocol: Document 04/06/20 14:15 AMB (Rec: 04/06/20 16:06 AMB [id number]) Therapeutic Exercises Supine Exercises 4 Supine Exercise Name gentle pelvic floor contract with focus on relaxation 3 Supine Exercise Name adductor stretch Other Exercises 1 Other Exercise Name Yoga HEP Comments reviewed stretching- priortization of exercises that feel good, Manual Therapy Treatment Soft Tissue Mobilization 3 Body Location R pelvis Body Position Hooklying Comments R piriformis, adductors, medial ischial tuberosity PT-OP-T Assessment and Plan Start: 03/08/20 10:06 Freq: Status: Active Protocol: Document 04/06/20 14:15 AMB (Rec: 04/06/20 16:08 AMB [id number]) Physical Therapy Assessment Assessment Summary Assessment Encouraged Yo to avoid extended sitting, especially on firm surfaces, avoid pelvic straining. Worked on exercises with breathing and also assessed hysterectomy scar which was long to get sensation back. Mayra does massage it and this does not hurt or change her sx. Physical Therapy Plan Next Visit Focus/Plan Next Note Type Treatment Note Next Visit Plan Pelvic stretching, relaxation, manual therapy to reduce tension
--- NOTE | 2020-04-20 15:29 | PT.OTN ---
Current Diagnoses Overactive bladder (04/20/20) Other female genital prolapse (04/20/20) Pelvic and perineal pain (04/20/20) Acquired absence of uterus with remaining cervical stump (04/20/20) Physical Therapy Treatment Note PT-OP-A Visit Information Start: 03/08/20 10:06 Freq: Status: Active Protocol: Document 04/20/20 12:46 AMB (Rec: 04/20/20 13:34 AMB [id number]) Out-Patient Physical Therapy Visit Information Visit Information Visit Type Treatment Note Visit Start Time 12:45 Visit Stop Time 13:30 Total Visit Minutes 45 Visit Number 4 PT-OP-B Current Condition Start: 03/08/20 10:06 Freq: Status: Active Protocol: Document 03/08/20 12:45 AMB (Rec: 03/08/20 14:28 AMB [email or web address]) Current Condition History of Current Condition Onset Date February 2019 Current Complaints pelvic pain, urgency History of Current Condition Mayra had a hysterectomy for fibroids in February and rested for a while, and then went back to work. Her pain increased signficantly. 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 She is down to working 2 hours a day doing [employer] due to the pain. She describes it as a rawness in her pelvic floor that radiates into her abdomen. Does note urgency and burning with urination when pain is at its worst, when she does rest she feels better. Has avoided intercourse due to the pain. Personal Factors Other Personal Factors That May Effect Lives on [place]- has to Therapy/Recovery take ferry [place] get to PT PT-OP-C Subjective Start: 03/08/20 10:06 Freq: Status: Active Protocol: Document 04/20/20 12:46 AMB (Rec: 04/20/20 13:34 AMB [id number]) OP-PT Subjective Patient Comments Patient Comments Last started strain counterstrain. PT-OP-I Pelvic Floor Start: 03/08/20 10:06 Freq: Status: Active Protocol: Document 03/08/20 12:45 AMB (Rec: 03/08/20 15:45 AMB [email or web address]) Pelvic Floor Assessment Urine Pelvic Floor Surgery Yes: open hysterectomy Urinary Symptoms Dysuria,Urge Sensation, Dribbling After Urination,Pain Leaks Per Day denies Voiding Frequency every 2 hours Nocturia 2 Bowel Other Bowel Symptoms burning with bowel movements when painful Pelvic Clock Pelvic Clock 12-3 Hypertonic,Tenderness, Tightness Pelvic Clock 9-12 Hypertonic,Tenderness, Tightness Pelvic Clock Other Tenderness and tightness at ischiocavernosus and deep transverse perineal as well as levator ani and obturator internus L>R Prolapse Cystocele Grade 1 Contraction Ability Voluntary Contraction Moderate Voluntary Relaxation Weak Manual Muscle Testing Left 3 Manual Muscle Testing Right 3 Manual Muscle Testing Anterior 2 Manual Muscle Testing Posterior 3 PT-OP-Q Treatments Start: 03/08/20 10:06 Freq: Status: Active Protocol: Document 04/20/20 12:45 AMB (Rec: 04/21/20 15:27 AMB [email or web address]) Manual Therapy Treatment Soft Tissue Mobilization 3 Body Location R pelvis Body Position Hooklying Comments R piriformis, adductors, medial ischial tuberosity 2 Body Location bladder superior glide 1 Body Location Reviewed pt modified positioning Comments pt focusing on pubic symphysis and adductors, encouraged to find positions that feel good both during and afterwards PT-OP-T Assessment and Plan Start: 03/08/20 10:06 Freq: Status: Active Protocol: Document 04/20/20 12:45 AMB (Rec: 04/21/20 15:27 AMB [email or web address]) Physical Therapy Assessment Goals Three Impairment Urgency Short Term Goal (STG) Mayra will decrease her urgency so that she does not have nocturia. STG Duration 4 weeks [facility] Goal (LTG) Mayra will take the time to fully void her bladder to avoid urgency after voids. LTG Duration 8 weeks Two Impairment Pain Short Term Goal (STG) Mayra will use a dilator with 1/10 pain or less. STG Duration 4 weeks [employer] Follower Goal (LTG) Mayra will work for 4 hours with 3/10 pain or less. LTG Duration 8 weeks One Impairment Lifting Short Term Goal (STG) Mayra will lift 25# from floor to waist height while maintaining pelvic floor contraction without an increase in pain. STG Duration 4 weeks Assessment Summary Assessment Yo has had a decrease in sx with her modified strain counterstrain that she can do herself. Importantly she has also stopped doing exercises that were increasing her sx. Hoping to continue with more indirect tx as she is very hesitant to have internal work , or even internal sensor due to previous pain. Physical Therapy Plan Next Visit Focus/Plan Next Note Type Treatment Note Next Visit Plan Indirect treatment, strain counterstrain to reduce pelvic tension/pain
--- NOTE | 2020-04-24 14:19 | PT.OTN ---
Current Diagnoses Overactive bladder (04/24/20) Other female genital prolapse (04/24/20) Pelvic and perineal pain (04/24/20) Acquired absence of uterus with remaining cervical stump (04/24/20) Physical Therapy Treatment Note PT-OP-A Visit Information Start: 03/08/20 10:06 Freq: Status: Active Protocol: Document 04/24/20 13:05 MB (Rec: 04/24/20 13:37 MB [id number]) Out-Patient Physical Therapy Visit Information Visit Information Visit Type Treatment Note Visit Start Time 13:05 Visit Stop Time 14:00 Total Visit Minutes 55 Visit Number 5 PT-OP-B Current Condition Start: 03/08/20 10:06 Freq: Status: Active Protocol: Document 03/08/20 12:45 AMB (Rec: 03/08/20 14:28 AMB [email or web address]) Current Condition History of Current Condition Onset Date February 2019 Current Complaints pelvic pain, urgency History of Current Condition Mayra had a hysterectomy for fibroids in February and rested for a while, and then went back to work. Her pain increased signficantly. 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 She is down to working 2 hours a day doing [employer] due to the pain. She describes it as a rawness in her pelvic floor that radiates into her abdomen. Does note urgency and burning with urination when pain is at its worst, when she does rest she feels better. Has avoided intercourse due to the pain. 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 PT-OP-I Pelvic Floor Start: 03/08/20 10:06 Freq: Status: Active Protocol: Document 03/08/20 12:45 AMB (Rec: 03/08/20 15:45 AMB [email or web address]) Pelvic Floor Assessment Urine Pelvic Floor Surgery Yes: open hysterectomy Urinary Symptoms Dysuria,Urge Sensation, Dribbling After Urination,Pain Leaks Per Day denies Voiding Frequency every 2 hours Nocturia 2 Bowel Other Bowel Symptoms burning with bowel movements when painful Pelvic Clock Pelvic Clock 12-3 Hypertonic,Tenderness, Tightness Pelvic Clock 9-12 Hypertonic,Tenderness, Tightness Pelvic Clock Other Tenderness and tightness at ischiocavernosus and deep transverse perineal as well as levator ani and obturator internus L>R Prolapse Cystocele Grade 1 Contraction Ability Voluntary Contraction Moderate Voluntary Relaxation Weak Manual Muscle Testing Left 3 Manual Muscle Testing Right 3 Manual Muscle Testing Anterior 2 Manual Muscle Testing Posterior 3 PT-OP-Q Treatments Start: 03/08/20 10:06 Freq: Status: Active Protocol: Document 04/24/20 13:05 MB (Rec: 04/24/20 13:37 MB [id number]) Manual Therapy Treatment Other Other Manual Treatments Pt denies eye trouble. Pt agrees to Counterstrain to assess and treat fascial tension. Pt presents with tension in the following fascial systems: trigeminal nerve, anterior somatic LE and UE right, B spinal medullary veins, R LF, R ALL, right myochain, left bladder, left sympathetic thorax, left posterior somatic. PT treats stacks trigeminal, facial and vagus nerves and abdominal mesentery after scan improves with initial treatment PT-OP-T Assessment and Plan Start: 03/08/20 10:06 Freq: Status: Active Protocol: Document 04/24/20 13:05 MB (Rec: 04/24/20 13:37 MB [id number]) Physical Therapy Assessment Goals Three Impairment Urgency Short Term Goal (STG) Mayra will decrease her urgency so that she does not have nocturia. STG Duration 4 weeks [employer] Goal (LTG) Mayra will take the time to fully void her bladder to avoid urgency after voids. LTG Duration 8 weeks Two Impairment Pain Short Term Goal (STG) Mayra will use a dilator with 1/10 pain or less. STG Duration 4 weeks [facility] Goal (LTG) Mayra will work for 4 hours with 3/10 pain or less. LTG Duration 8 weeks One Impairment Lifting Short Term Goal (STG) Mayra will lift 25# from floor to waist height while maintaining pelvic floor contraction without an increase in pain. STG Duration 4 weeks Assessment Summary Assessment Initiated Counterstrain today to improve fascial tension and pt responds well to treatment today. Con't to monitor response. Physical Therapy Plan Next Visit Focus/Plan Next Note Type Treatment Note Next Visit Plan Ongoing Counterstrain to improve fascial tension
--- NOTE | 2020-05-01 14:19 | PT.OTN ---
Current Diagnoses Overactive bladder (05/01/20) Other female genital prolapse (05/01/20) Pelvic and perineal pain (05/01/20) Acquired absence of uterus with remaining cervical stump (05/01/20) Physical Therapy Treatment Note PT-OP-A Visit Information Start: 03/08/20 10:06 Freq: Status: Active Protocol: Document 05/01/20 13:01 MB (Rec: 05/01/20 14:12 MB [id number]) Out-Patient Physical Therapy Visit Information Visit Information Visit Type Treatment Note Visit Start Time 13:01 Visit Stop Time 14:01 Total Visit Minutes 60 Visit Number 6 PT-OP-B Current Condition Start: 03/08/20 10:06 Freq: Status: Active Protocol: Document 03/08/20 12:45 AMB (Rec: 03/08/20 14:28 AMB [email or web address]) Current Condition History of Current Condition Onset Date February 2019 Current Complaints pelvic pain, urgency History of Current Condition Mayra had a hysterectomy for fibroids in February and rested for a while, and then went back to work. Her pain increased signficantly. 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 She is down to working 2 hours a day doing [employer] due to the pain. She describes it as a rawness in her pelvic floor that radiates into her abdomen. Does note urgency and burning with urination when pain is at its worst, when she does rest she feels better. Has avoided intercourse due to the pain. Personal Factors Other Personal Factors That May Effect Lives on [place]- has to Therapy/Recovery take ferry to get to PT PT-OP-C Subjective Start: 03/08/20 10:06 Freq: Status: Active Protocol: Document 05/01/20 13:01 MB (Rec: 05/01/20 14:12 MB [id number]) OP-PT Subjective Patient Comments Patient Comments Pt states that she has been living at 7,8,9 on a pain scale and then for two days, she was at about a 5,6,7 pain. She was sitting long doing a yoga zoom class and then she was a little sore. She is feeling more understanding about fascial release. She still has anterior perineal discomfort. PT-OP-I Pelvic Floor Start: 03/08/20 10:06 Freq: Status: Active Protocol: Document 03/08/20 12:45 AMB (Rec: 03/08/20 15:45 AMB [email or web address]) Pelvic Floor Assessment Urine Pelvic Floor Surgery Yes: open hysterectomy Urinary Symptoms Dysuria,Urge Sensation, Dribbling After Urination,Pain Leaks Per Day denies Voiding Frequency every 2 hours Nocturia 2 Bowel Other Bowel Symptoms burning with bowel movements when painful Pelvic Clock Pelvic Clock 12-3 Hypertonic,Tenderness, Tightness Pelvic Clock 9-12 Hypertonic,Tenderness, Tightness Pelvic Clock Other Tenderness and tightness at ischiocavernosus and deep transverse perineal as well as levator ani and obturator internus L>R Prolapse Cystocele Grade 1 Contraction Ability Voluntary Contraction Moderate Voluntary Relaxation Weak Manual Muscle Testing Left 3 Manual Muscle Testing Right 3 Manual Muscle Testing Anterior 2 Manual Muscle Testing Posterior 3 PT-OP-Q Treatments Start: 03/08/20 10:06 Freq: Status: Active Protocol: Document 05/01/20 13:01 MB (Rec: 05/01/20 14:12 MB [id number]) Manual Therapy Treatment Other Other Manual Treatments Pt agrees to Counterstrain to assess and treat fascial tension and pt presents with tension in the follow fascial systems: anterior somatic, left dural, right ALL, LF, B spinal vein extension, left visceral valves, left DPR lower. PT treats stacks in the following systems: cervical to thoracic spinal veins extension and post-ganglionic sympathetics that scan after treatment of LV. PT-OP-T Assessment and Plan Start: 03/08/20 10:06 Freq: Status: Active Protocol: Document 05/01/20 13:01 MB (Rec: 05/01/20 14:12 MB [id number]) Physical Therapy Assessment Goals Three Impairment Urgency Short Term Goal (STG) Davidellysonia will decrease her urgency so that she does not have nocturia. STG Duration 4 weeks [employer] Goal (LTG) Mayra will take the time to fully void her bladder to avoid urgency after voids. LTG Duration 8 weeks Two Impairment Pain Short Term Goal (STG) Mayra will use a dilator with 1/10 pain or less. STG Duration 4 weeks [employer] Lab[employer] Goal (LTG) Mayra will work for 4 hours with 3/10 pain or less. LTG Duration 8 weeks One Impairment Lifting Short Term Goal (STG) Mayra will lift 25# from floor to waist height while maintaining pelvic floor contraction without an increase in pain. STG Duration 4 weeks Assessment Summary Assessment Pt is responding well to Counterstrain treatment and will start focusing on [place] breathing at home and sitting in better positions such as on a 55 cm ball to help with decompressing and supporting thorax, veins and spinal nerves while avoiding compression of anterior pelvic floor. Con't to monitor response and consider alternating appointments with fascial counterstrain therapist and pelvic floor therapist. Physical Therapy Plan Next Visit Focus/Plan Next Note Type Treatment Note Next Visit Plan Ongoing Counterstrain to improve fascial tension
--- NOTE | 2020-05-08 14:16 | PT.OTN ---
Current Diagnoses Overactive bladder (05/08/20) Other female genital prolapse (05/08/20) Pelvic and perineal pain (05/08/20) Acquired absence of uterus with remaining cervical stump (05/08/20) Physical Therapy Treatment Note PT-OP-A Visit Information Start: 03/08/20 10:06 Freq: Status: Active Protocol: Document 05/08/20 13:00 MB (Rec: 05/08/20 14:15 MB [id number]) Out-Patient Physical Therapy Visit Information Visit Information Visit Type Treatment Note Visit Start Time 13:00 Visit Stop Time 14:00 Total Visit Minutes 60 Visit Number 7 PT-OP-B Current Condition Start: 03/08/20 10:06 Freq: Status: Active Protocol: Document 03/08/20 12:45 AMB (Rec: 03/08/20 14:28 AMB [email or web address]) Current Condition History of Current Condition Onset Date February 2019 Current Complaints pelvic pain, urgency History of Current Condition Mayra had a hysterectomy for fibroids in February and rested for a while, and then went back to work. Her pain increased signficantly. 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 She is down to working 2 hours a day doing [employer] due to the pain. She describes it as a rawness in her pelvic floor that radiates into her abdomen. Does note urgency and burning with urination when pain is at its worst, when she does rest she feels better. Has avoided intercourse due to the pain. Personal Factors Other Personal Factors That May Effect Lives on [place]- has to Therapy/Recovery take karony to get to PT PT-OP-C Subjective Start: 03/08/20 10:06 Freq: Status: Active Protocol: Document 05/08/20 13:00 MB (Rec: 05/08/20 14:15 MB [id number]) OP-PT Subjective Patient Comments Patient Comments Pt was on the computer a lot on Thursday and was sitting. She spent most of the day in bed on and felt better over the weekend. She had some sharp pain over the right inguinal ligament. She now feels better and a little looser. PT-OP-I Pelvic Floor Start: 03/08/20 10:06 Freq: Status: Active Protocol: Document 03/08/20 12:45 AMB (Rec: 03/08/20 15:45 AMB [email or web address]) Pelvic Floor Assessment Urine Pelvic Floor Surgery Yes: open hysterectomy Urinary Symptoms Dysuria,Urge Sensation, Dribbling After Urination,Pain Leaks Per Day denies Voiding Frequency every 2 hours Nocturia 2 Bowel Other Bowel Symptoms burning with bowel movements when painful Pelvic Clock Pelvic Clock 12-3 Hypertonic,Tenderness, Tightness Pelvic Clock 9-12 Hypertonic,Tenderness, Tightness Pelvic Clock Other Tenderness and tightness at ischiocavernosus and deep transverse perineal as well as levator ani and obturator internus L>R Prolapse Cystocele Grade 1 Contraction Ability Voluntary Contraction Moderate Voluntary Relaxation Weak Manual Muscle Testing Left 3 Manual Muscle Testing Right 3 Manual Muscle Testing Anterior 2 Manual Muscle Testing Posterior 3 PT-OP-Q Treatments Start: 03/08/20 10:06 Freq: Status: Active Protocol: Document 05/08/20 13:00 MB (Rec: 05/08/20 14:15 MB [id number]) Manual Therapy Treatment Other Other Manual Treatments Pt agrees to Counterstrain to assess and treat fascial tension and pt presents with tension in the following fascial systems: UE anterior somatic, vagus nerve, DPR, periosteal and PT treats cervical stacks, right extended upper ribs, left ischial outflare and position of ease scar pressure over hysterectomy scar. PT-OP-T Assessment and Plan Start: 03/08/20 10:06 Freq: Status: Active Protocol: Document 05/08/20 13:00 MB (Rec: 05/08/20 14:15 MB [id number]) Physical Therapy Assessment Goals Three Impairment Urgency Short Term Goal (STG) Davidellysonia will decrease her urgency so that she does not have nocturia. STG Duration 4 weeks [facility] Goal (LTG) Mayra will take the time to fully void her bladder to avoid urgency after voids. LTG Duration 8 weeks Two Impairment Pain Short Term Goal (STG) Mayra will use a dilator with 1/10 pain or less. STG Duration 4 weeks [facility] Goal (LTG) Mayra will work for 4 hours with 3/10 pain or less. LTG Duration 8 weeks One Impairment Lifting Short Term Goal (STG) Mayra will lift 25# from floor to waist height while maintaining pelvic floor contraction without an increase in pain. STG Duration 4 weeks Assessment Summary Assessment Periosteal treatment today and position of ease scar pressure and pt responds well today. Ed her to only perform this over scar and not CFM over it. Also, ed in benefits of ishial sitting on therapy ball or sitting over peanut shaped ball and pt to consider . Con't Counterstrain as helpful and follow-up with primary PT. Schedule reflects this. Physical Therapy Plan Next Visit Focus/Plan Next Note Type Treatment Note Next Visit Plan One more Counterstrain improve fascial tension
--- NOTE | 2020-05-16 14:43 | PT.OTN ---
Current Diagnoses Overactive bladder (05/16/20) Other female genital prolapse (05/16/20) Pelvic and perineal pain (05/16/20) Acquired absence of uterus with remaining cervical stump (05/16/20) Physical Therapy Treatment Note PT-OP-A Visit Information Start: 03/08/20 10:06 Freq: Status: Active Protocol: Document 05/16/20 13:02 MB (Rec: 05/16/20 14:36 MB [id number]) Out-Patient Physical Therapy Visit Information Visit Information Visit Type Treatment Note Visit Start Time 13:02 Visit Stop Time 14:02 Total Visit Minutes 60 Visit Number 8 PT-OP-B Current Condition Start: 03/08/20 10:06 Freq: Status: Active Protocol: Document 03/08/20 12:45 AMB (Rec: 03/08/20 14:28 AMB [email or web address]) Current Condition History of Current Condition Onset Date February 2019 Current Complaints pelvic pain, urgency History of Current Condition Mayra had a hysterectomy for fibroids in February and rested for a while, and then went back to work. Her pain increased signficantly. 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 She is down to working 2 hours a day doing [employer] due to the pain. She describes it as a rawness in her pelvic floor that radiates into her abdomen. Does note urgency and burning with urination when pain is at its worst, when she does rest she feels better. Has avoided intercourse due to the pain. Personal Factors Other Personal Factors That May Effect Lives on [place]- has to Therapy/Recovery take ferry to get to PT PT-OP-C Subjective Start: 03/08/20 10:06 Freq: Status: Active Protocol: Document 05/16/20 13:02 MB (Rec: 05/16/20 14:36 MB [id number]) OP-PT Subjective Patient Comments Patient Comments Pt states that she did not have any flare-up after last Counterstrain treatment. She is at a 4,5,6 pain compared to higher. Sometimes, she does not notice the pain. She got a 55 cm therapy ball and did not inflate it fully. PT-OP-I Pelvic Floor Start: 03/08/20 10:06 Freq: Status: Active Protocol: Document 03/08/20 12:45 AMB (Rec: 03/08/20 15:45 AMB [email or web address]) Pelvic Floor Assessment Urine Pelvic Floor Surgery Yes: open hysterectomy Urinary Symptoms Dysuria,Urge Sensation, Dribbling After Urination,Pain Leaks Per Day denies Voiding Frequency every 2 hours Nocturia 2 Bowel Other Bowel Symptoms burning with bowel movements when painful Pelvic Clock Pelvic Clock 12-3 Hypertonic,Tenderness, Tightness Pelvic Clock 9-12 Hypertonic,Tenderness, Tightness Pelvic Clock Other Tenderness and tightness at ischiocavernosus and deep transverse perineal as well as levator ani and obturator internus L>R Prolapse Cystocele Grade 1 Contraction Ability Voluntary Contraction Moderate Voluntary Relaxation Weak Manual Muscle Testing Left 3 Manual Muscle Testing Right 3 Manual Muscle Testing Anterior 2 Manual Muscle Testing Posterior 3 PT-OP-Q Treatments Start: 03/08/20 10:06 Freq: Status: Active Protocol: Document 05/16/20 13:02 MB (Rec: 05/16/20 14:36 MB [id number]) Manual Therapy Treatment Other Other Manual Treatments Pt agrees to Counterstrain to assess and treat fascial tension and pt presents with tension in the following fascial systems: ALL, vagus, spinal medullary LV, preganglionic left above T8, periosteal. PT treats stacks along the vagus nerve fascia and right UE ALL. PT-OP-T Assessment and Plan Start: 03/08/20 10:06 Freq: Status: Active Protocol: Document 05/16/20 13:02 MB (Rec: 05/16/20 14:36 MB [id number]) Physical Therapy Assessment Goals Three Impairment Urgency Short Term Goal (STG) Marya will decrease her urgency so that she does not have nocturia. STG Duration 4 weeks Intermediate Goal (LTG) Mayra will take the time to fully void her bladder to avoid urgency after voids. LTG Duration 8 weeks Two Impairment Pain Short Term Goal (STG) Mayra will use a dilator with 1/10 pain or less. STG Duration 4 weeks Intermediate Goal (LTG) Mayra will work for 4 hours with 3/10 pain or less. LTG Duration 8 weeks One Impairment Lifting Short Term Goal (STG) Mayra will lift 25# from floor to waist height while maintaining pelvic floor contraction without an increase in pain. STG Duration 4 weeks Assessment Summary Assessment Pt states that she has to take her pets to the vet next week and will have to cancel appointment. She is working on finding position of ease with scar, sitting position. She reports that Counterstrain has been the most helpful thing and so will con't treatment. Today was a large neural fascial treatment and will monitor her responses to treatment. Physical Therapy Plan Next Visit Focus/Plan Next Note Type Treatment Note Next Visit Plan Counterstrain with this therapist, follow-up with primary therapist for check-in /progress note by treatment 10
--- NOTE | 2020-05-28 15:26 | PT.OTN ---
Current Diagnoses Overactive bladder (05/28/20) Other female genital prolapse (05/28/20) Pelvic and perineal pain (05/28/20) Acquired absence of uterus with remaining cervical stump (05/28/20) Physical Therapy Treatment Note PT-OP-A Visit Information Start: 03/08/20 10:06 Freq: Status: Active Protocol: Document 05/28/20 14:28 MB (Rec: 05/28/20 15:26 MB [id number]) Out-Patient Physical Therapy Visit Information Visit Information Visit Type Treatment Note Visit Start Time 14:28 Visit Stop Time 15:15 Total Visit Minutes 47 Visit Number 9 PT-OP-B Current Condition Start: 03/08/20 10:06 Freq: Status: Active Protocol: Document 03/08/20 12:45 AMB (Rec: 03/08/20 14:28 AMB [email or web address]) Current Condition History of Current Condition Onset Date February 2019 Current Complaints pelvic pain, urgency History of Current Condition Mayra had a hysterectomy for fibroids in February and rested for a while, and then went back to work. Her pain increased signficantly. 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 She is down to working 2 hours a day doing [employer] due to the pain. She describes it as a rawness in her pelvic floor that radiates into her abdomen. Does note urgency and burning with urination when pain is at its worst, when she does rest she feels better. Has avoided intercourse due to the pain. Personal Factors Other Personal Factors That May Effect Lives on [place]- has to Therapy/Recovery take ferry to get to PT PT-OP-C Subjective Start: 03/08/20 10:06 Freq: Status: Active Protocol: Document 05/28/20 14:28 MB (Rec: 05/28/20 15:26 MB [id number]) OP-PT Subjective Patient Comments Patient Comments Pretty good. I've sort of plateaued. I can walk for a little bit longer. I can sit for a little bit longer. I am nervous about spring and the [employer] business. Pt reports that she got reflexology and it caused increased pain in her pelvis and swelling. PT-OP-I Pelvic Floor Start: 03/08/20 10:06 Freq: Status: Active Protocol: Document 03/08/20 12:45 AMB (Rec: 03/08/20 15:45 AMB [email or web address]) Pelvic Floor Assessment Urine Pelvic Floor Surgery Yes: open hysterectomy Urinary Symptoms Dysuria,Urge Sensation, Dribbling After Urination,Pain Leaks Per Day denies Voiding Frequency every 2 hours Nocturia 2 Bowel Other Bowel Symptoms burning with bowel movements when painful Pelvic Clock Pelvic Clock 12-3 Hypertonic,Tenderness, Tightness Pelvic Clock 9-12 Hypertonic,Tenderness, Tightness Pelvic Clock Other Tenderness and tightness at ischiocavernosus and deep transverse perineal as well as levator ani and obturator internus L>R Prolapse Cystocele Grade 1 Contraction Ability Voluntary Contraction Moderate Voluntary Relaxation Weak Manual Muscle Testing Left 3 Manual Muscle Testing Right 3 Manual Muscle Testing Anterior 2 Manual Muscle Testing Posterior 3 PT-OP-Q Treatments Start: 03/08/20 10:06 Freq: Status: Active Protocol: Document 05/28/20 14:28 MB (Rec: 05/28/20 15:26 MB [id number]) Manual Therapy Treatment Other Other Manual Treatments Pt agrees to Counterstrain to assess and treat fascial tension and pt presents with tension in the following fascial systems: sympathetics above T7, visceral and visceral mesentery. PT treated mesentery and the other scans cleared. PT-OP-T Assessment and Plan Start: 03/08/20 10:06 Freq: Status: Active Protocol: Document 05/28/20 14:28 MB (Rec: 05/28/20 15:26 MB [id number]) Physical Therapy Assessment Goals Three Impairment Urgency Short Term Goal (STG) Llewellyne will decrease her urgency so that she does not have nocturia. 05/28/20: Pt reports that she is getting up 1-2x/night to urinate. STG Duration 4 weeks Senior Care Goal (LTG) Llfamiliaellyne will take the time to fully void her bladder to avoid urgency after voids. LTG Duration 8 weeks Two Impairment Pain Short Term Goal (STG) Llfamiliaellysonia will use a dilator with 1/10 pain or less. 05/28/20: Pt could not tolerate dilator when tried earlier in treatment course. STG Duration 4 weeks Reception Centre Manager Goal (LTG) Mayra will work for 4 hours with 3/10 pain or less. 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 LTG Duration 8 weeks One Impairment Lifting Short Term Goal (STG) Mayra will lift 25# from floor to waist height while maintaining pelvic floor contraction without an increase in pain. 05/28/20: Not yet tried. STG Duration 4 weeks Assessment Summary Assessment Pt is stressed out about coming in once a week. She is cancelling some appointments. She would like to con't with Counterstrain every other week as it has been the only thing that has been helping her. She has a little more endurance with walking and sitting for zoom. She had less anxiety after vagus nerve treatment last treatment date. PT spoke with primary therapist and she agrees with plan to con't PT every other week, con't to monitor goals. Physical Therapy Plan Frequency and Duration Frequency of Treatment Every Other Week Duration of Treatment 8 weeks Plan of Care Start Date 05/28/20 Plan of Care End Date 07/30/20 Next Visit Focus/Plan Next Note Type Treatment Note Next Visit Plan Con't Counterstrain
--- NOTE | 2020-06-14 15:14 | PT.OTN ---
Current Diagnoses Overactive bladder (06/14/20) Other female genital prolapse (06/14/20) Pelvic and perineal pain (06/14/20) Acquired absence of uterus with remaining cervical stump (06/14/20) Physical Therapy Treatment Note PT-OP-A Visit Information Start: 03/08/20 10:06 Freq: Status: Active Protocol: Document 06/14/20 13:45 MB (Rec: 06/14/20 14:33 MB [id number]) Out-Patient Physical Therapy Visit Information Visit Information Visit Type Treatment Note Visit Start Time 13:45 Visit Stop Time 14:30 Total Visit Minutes 45 Visit Number 10 PT-OP-B Current Condition Start: 03/08/20 10:06 Freq: Status: Active Protocol: Document 03/08/20 12:45 AMB (Rec: 03/08/20 14:28 AMB [email or web address]) Current Condition History of Current Condition Onset Date February 2019 Current Complaints pelvic pain, urgency History of Current Condition Mayra had a hysterectomy for fibroids in February and rested for a while, and then went back to work. Her pain increased signficantly. 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 She is down to working 2 hours a day doing [employer] due to the pain. She describes it as a rawness in her pelvic floor that radiates into her abdomen. Does note urgency and burning with urination when pain is at its worst, when she does rest she feels better. Has avoided intercourse due to the pain. Personal Factors Other Personal Factors That May Effect Lives [place]- has to Therapy/Recovery take [place] to get to PT PT-OP-C Subjective Start: 03/08/20 10:06 Freq: Status: Active Protocol: Document 06/14/20 13:45 MB (Rec: 06/14/20 14:33 MB [id number]) OP-PT Subjective Patient Comments Patient Comments I saw a little bit of daylight after I saw you the last time. Pt states that she felt so good two days after last treatment, that she turned some music on and danced. She then did some work on her hands and knees for [employer] business and then she was down for the weekend. Resting and taking advil helped. PT-OP-I Pelvic Floor Start: 03/08/20 10:06 Freq: Status: Active Protocol: Document 03/08/20 12:45 AMB (Rec: 03/08/20 15:45 AMB [email or web address]) Pelvic Floor Assessment Urine Pelvic Floor Surgery Yes: open hysterectomy Urinary Symptoms Dysuria,Urge Sensation, Dribbling After Urination,Pain Leaks Per Day denies Voiding Frequency every 2 hours Nocturia 2 Bowel Other Bowel Symptoms burning with bowel movements when painful Pelvic Clock Pelvic Clock 12-3 Hypertonic,Tenderness, Tightness Pelvic Clock 9-12 Hypertonic,Tenderness, Tightness Pelvic Clock Other Tenderness and tightness at ischiocavernosus and deep transverse perineal as well as levator ani and obturator internus L>R Prolapse Cystocele Grade 1 Contraction Ability Voluntary Contraction Moderate Voluntary Relaxation Weak Manual Muscle Testing Left 3 Manual Muscle Testing Right 3 Manual Muscle Testing Anterior 2 Manual Muscle Testing Posterior 3 PT-OP-Q Treatments Start: 03/08/20 10:06 Freq: Status: Active Protocol: Document 06/14/20 13:45 MB (Rec: 06/14/20 14:33 MB [id number]) Manual Therapy Treatment Other Other Manual Treatments Pt agrees to Counterstrain to assess and treat fascial tension and pt presents with tension in the following fascial systems: right bone scar and cranial bone cervical and eustachan tube. PT clears LV tightness before treatment of periosteal bones--cervical spinal medullary and cerbellar veins. Treated C1 lateral to medial compression dysfunction. PT-OP-T Assessment and Plan Start: 03/08/20 10:06 Freq: Status: Active Protocol: Document 06/14/20 13:45 MB (Rec: 06/14/20 14:33 MB [id number]) Physical Therapy Assessment Goals Three Impairment Urgency Short Term Goal (STG) Mayra will decrease her urgency so that she does not have nocturia. 05/28/20: Pt reports that she is getting up 1-2x/night to urinate. STG Duration 4 weeks Multi Share Program Coordinator Goal (LTG) Mayra will take the time to fully void her bladder to avoid urgency after voids. LTG Duration 8 weeks Two Impairment Pain Short Term Goal (STG) Mayra will use a dilator with 1/10 pain or less. 05/28/20: Pt could not tolerate dilator when tried earlier in treatment course. STG Duration 4 weeks Retirement Goal (LTG) Mayra will work for 4 hours with 3/10 pain or less. 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 LTG Duration 8 weeks One Impairment Lifting Short Term Goal (STG) Mayra will lift 25# from floor to waist height while maintaining pelvic floor contraction without an increase in pain. 05/28/20: Not yet tried. STG Duration 4 weeks Progress Towards Goals Progress Towards Goals Slow Progress due to Activity Tolerance Assessment Summary Assessment Treated upper cervical periosteal today after LV clearing and decided to finish up with that today. Her venous scan on her head including spinal medullary con 't with some tightness. Con't Counterstrain. Pt may come 1x/ wk in the future weeks to con' t with progress. Physical Therapy Plan Frequency and Duration Frequency of Treatment 1x/wk or biweekly Duration of Treatment 8 weeks Plan of Care Start Date 06/14/20 Plan of Care End Date 08/14/20 Therapeutic Interventions Therapeutic Interventions Home Exercise Program,Manual Therapy,Neuromuscular Re- education,Patient/Caregiver Education,Self-Care/Home Management,Sensory Integration ,Soft Tissue Mobilization, Taping,Therapeutic Activities, Therapeutic Exercises Modalities Cold Pack/Ice Massage,Hot Packs Next Visit Focus/Plan Next Note Type Treatment Note Next Visit Plan Con't Counterstrain
--- NOTE | 2020-06-14 15:14 | PT.OPPOC ---
Physical, Occupational & Speech Therapy At [facility] Current Diagnoses Overactive bladder (06/14/20) Other female genital prolapse (06/14/20) Pelvic and perineal pain (06/14/20) Acquired absence of uterus with remaining cervical stump (06/14/20) Visit Care Team Role Provider Type Sarita Antonio ND Primary Care Provider Non-Staff Specialty: Naturopathy Address: [address] [place] [address], [id number] Email: Piper Cowart MD Attending Provider Physician Referring Provider Specialty: STUDENT ADMISSIONS CLERK Address: [address] [place] [address], [id number] Email: [email or web address] Plan Of Care PT-OP-T Assessment and Plan Start: 03/08/20 10:06 Freq: Status: Active Protocol: Document 06/14/20 13:45 MB (Rec: 06/14/20 14:33 MB [id number]) Physical Therapy Assessment Goals Three Impairment Urgency Short Term Goal (STG) Mayra will decrease her urgency so that she does not have nocturia. 05/28/20: Pt reports that she is getting up 1-2x/night to urinate. STG Duration 4 weeks Face Cleaner Goal (LTG) Mayra will take the time to fully void her bladder to avoid urgency after voids. LTG Duration 8 weeks Two Impairment Pain Short Term Goal (STG) Mayra will use a dilator with 1/10 pain or less. 05/28/20: Pt could not tolerate dilator when tried earlier in treatment course. STG Duration 4 weeks Correction Goal (LTG) Mayra will work for 4 hours with 3/10 pain or less. 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 LTG Duration 8 weeks One Impairment Lifting Short Term Goal (STG) Mayra will lift 25# from floor to waist height while maintaining pelvic floor contraction without an increase in pain. 05/28/20: Not yet tried. STG Duration 4 weeks Progress Towards Goals Progress Towards Goals Slow Progress due to Activity Tolerance Assessment Summary Assessment Treated upper cervical periosteal today after LV clearing and decided to finish up with that today. Her venous scan on her head including spinal medullary con 't with some tightness. Con't Counterstrain. Pt may come 1x/ wk in the future weeks to con' t with progress. Physical Therapy Plan Frequency and Duration Frequency of Treatment 1x/wk or biweekly Duration of Treatment 8 weeks Plan of Care Start Date 06/14/20 Plan of Care End Date 08/14/20 Therapeutic Interventions Therapeutic Interventions Home Exercise Program,Manual Therapy,Neuromuscular Re- education,Patient/Caregiver Education,Self-Care/Home Management,Sensory Integration ,Soft Tissue Mobilization, Taping,Therapeutic Activities, Therapeutic Exercises Modalities Cold Pack/Ice Massage,Hot Packs Next Visit Focus/Plan Next Note Type Treatment Note Next Visit Plan Con't Counterstrain Plan of Care Dates Plan of Care Start Date 06/14/20 Plan of Care End Date 08/14/20 Electronically Signed by: Maddie Valdez, PT 06/14/20 [id number] Please Sign and Return: I have reviewed this Plan of Care and certify that the skilled therapy services above are required to meet the patient?s needs. Physician Signature Date Printed Name and Credentials Clinical Instructor Signature Printed Name and Credentials
--- NOTE | 2020-06-20 15:35 | PT.OTN ---
Current Diagnoses Overactive bladder (06/20/20) Other female genital prolapse (06/20/20) Pelvic and perineal pain (06/20/20) Acquired absence of uterus with remaining cervical stump (06/20/20) Physical Therapy Treatment Note PT-OP-A Visit Information Start: 03/08/20 10:06 Freq: Status: Active Protocol: Document 06/20/20 14:32 MB (Rec: 06/20/20 15:26 MB [id number]) Out-Patient Physical Therapy Visit Information Visit Information Visit Type Treatment Note Visit Start Time 14:32 Visit Stop Time 15:15 Total Visit Minutes 43 Visit Number 11 PT-OP-B Current Condition Start: 03/08/20 10:06 Freq: Status: Active Protocol: Document 03/08/20 12:45 AMB (Rec: 03/08/20 14:28 AMB [email or web address]) Current Condition History of Current Condition Onset Date February 2019 Current Complaints pelvic pain, urgency History of Current Condition Mayra had a hysterectomy for fibroids in February and rested for a while, and then went back to work. Her pain increased signficantly. 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 She is down to working 2 hours a day doing [employer] due to the pain. She describes it as a rawness in her pelvic floor that radiates into her abdomen. Does note urgency and burning with urination when pain is at its worst, when she does rest she feels better. Has avoided intercourse due to the pain. Personal Factors Other Personal Factors That May Effect Lives on [place]- has to Therapy/Recovery take ferry to get to PT PT-OP-C Subjective Start: 03/08/20 10:06 Freq: Status: Active Protocol: Document 06/20/20 14:32 MB (Rec: 06/20/20 15:26 MB [id number]) OP-PT Subjective Patient Comments Patient Comments Not too different. I might just feel a smidgen bit better with sitting and standing. Pt states that she is self- limiting her work in order not to have a flare-up. PT-OP-I Pelvic Floor Start: 03/08/20 10:06 Freq: Status: Active Protocol: Document 03/08/20 12:45 AMB (Rec: 03/08/20 15:45 AMB [email or web address]) Pelvic Floor Assessment Urine Pelvic Floor Surgery Yes: open hysterectomy Urinary Symptoms Dysuria,Urge Sensation, Dribbling After Urination,Pain Leaks Per Day denies Voiding Frequency every 2 hours Nocturia 2 Bowel Other Bowel Symptoms burning with bowel movements when painful Pelvic Clock Pelvic Clock 12-3 Hypertonic,Tenderness, Tightness Pelvic Clock 9-12 Hypertonic,Tenderness, Tightness Pelvic Clock Other Tenderness and tightness at ischiocavernosus and deep transverse perineal as well as levator ani and obturator internus L>R Prolapse Cystocele Grade 1 Contraction Ability Voluntary Contraction Moderate Voluntary Relaxation Weak Manual Muscle Testing Left 3 Manual Muscle Testing Right 3 Manual Muscle Testing Anterior 2 Manual Muscle Testing Posterior 3 PT-OP-Q Treatments Start: 03/08/20 10:06 Freq: Status: Active Protocol: Document 06/20/20 14:32 MB (Rec: 06/20/20 15:26 MB [id number]) Manual Therapy Treatment Other Other Manual Treatments Pt agrees to Counterstrain to assess and treat fascial tension and pt presents with tension in the following fascial systems: LF. PT treats stacks cervical to lumbar LF and pt's scan and spinal passive mobility is much improved after treatment Self-Care/Home Management Treatment Education Other Education Ed pt on benefits of looking into book, Heal Pelvic Pain, thoracic and pect stretch over two rolled up yoga mats or small pool noodle and diaphragm breathing to pelvic drop over the mat PT-OP-T Assessment and Plan Start: 03/08/20 10:06 Freq: Status: Active Protocol: Document 06/20/20 14:32 MB (Rec: 06/20/20 15:26 MB [id number]) Physical Therapy Assessment Goals Three Impairment Urgency Short Term Goal (STG) Davidellysonia will decrease her urgency so that she does not have nocturia. 05/28/20: Pt reports that she is getting up 1-2x/night to urinate. STG Duration 4 weeks Group Home Goal (LTG) Mayra will take the time to fully void her bladder to avoid urgency after voids. LTG Duration 8 weeks Two Impairment Pain Short Term Goal (STG) Mayra will use a dilator with 1/10 pain or less. 05/28/20: Pt could not tolerate dilator when tried earlier in treatment course. STG Duration 4 weeks Group Home Goal (LTG) Mayra will work for 4 hours with 3/10 pain or less. 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 LTG Duration 8 weeks One Impairment Lifting Short Term Goal (STG) Mayra will lift 25# from floor to waist height while maintaining pelvic floor contraction without an increase in pain. 05/28/20: Not yet tried. STG Duration 4 weeks Assessment Summary Assessment Pt's passive mobility in spine is much improved after Counterstrain as well as her cranial scan. These should assist with pelvic symptoms and overall coordinated mobility of spine and pelvis. Con't Counterstrain and education. Physical Therapy Plan Frequency and Duration Frequency of Treatment 1x/wk or biweekly Duration of Treatment 8 weeks Plan of Care Start Date 06/14/20 Plan of Care End Date 08/14/20 Therapeutic Interventions Therapeutic Interventions Home Exercise Program,Manual Therapy,Neuromuscular Re- education,Patient/Caregiver Education,Self-Care/Home Management,Sensory Integration ,Soft Tissue Mobilization, Taping,Therapeutic Activities, Therapeutic Exercises Modalities Cold Pack/Ice Massage,Hot Packs Next Visit Focus/Plan Next Note Type Treatment Note Next Visit Plan Con't Counterstrain
--- NOTE | 2020-06-28 14:07 | PT.OTN ---
Current Diagnoses Overactive bladder (06/28/20) Other female genital prolapse (06/28/20) Pelvic and perineal pain (06/28/20) Acquired absence of uterus with remaining cervical stump (06/28/20) Physical Therapy Treatment Note PT-OP-A Visit Information Start: 03/08/20 10:06 Freq: Status: Active Protocol: Document 06/28/20 13:01 MB (Rec: 06/28/20 14:07 MB [id number]) Out-Patient Physical Therapy Visit Information Visit Information Visit Type Treatment Note Visit Start Time 13:01 Visit Stop Time 14:00 Total Visit Minutes 59 Visit Number 12 PT-OP-B Current Condition Start: 03/08/20 10:06 Freq: Status: Active Protocol: Document 03/08/20 12:45 AMB (Rec: 03/08/20 14:28 AMB [email or web address]) Current Condition History of Current Condition Onset Date February 2019 Current Complaints pelvic pain, urgency History of Current Condition Mayra had a hysterectomy for fibroids in February and rested for a while, and then went back to work. Her pain increased signficantly. 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 She is down to working 2 hours a day doing [employer] due to the pain. She describes it as a rawness in her pelvic floor that radiates into her abdomen. Does note urgency and burning with urination when pain is at its worst, when she does rest she feels better. Has avoided intercourse due to the pain. Personal Factors Other Personal Factors That May Effect Lives on [place]- has to Therapy/Recovery take ferry to get to PT PT-OP-C Subjective Start: 03/08/20 10:06 Freq: Status: Active Protocol: Document 06/28/20 13:01 MB (Rec: 06/28/20 14:07 MB [id number]) OP-PT Subjective Patient Comments Patient Comments I'm a little emotional today. I had my first vaccine this morning. I'm hormonal. It's June and I can't do a lot with my [employer] business. Pt states that it is hard that she can't get out and do anything. PT-OP-I Pelvic Floor Start: 03/08/20 10:06 Freq: Status: Active Protocol: Document 03/08/20 12:45 AMB (Rec: 03/08/20 15:45 AMB [email or web address]) Pelvic Floor Assessment Urine Pelvic Floor Surgery Yes: open hysterectomy Urinary Symptoms Dysuria,Urge Sensation, Dribbling After Urination,Pain Leaks Per Day denies Voiding Frequency every 2 hours Nocturia 2 Bowel Other Bowel Symptoms burning with bowel movements when painful Pelvic Clock Pelvic Clock 12-3 Hypertonic,Tenderness, Tightness Pelvic Clock 9-12 Hypertonic,Tenderness, Tightness Pelvic Clock Other Tenderness and tightness at ischiocavernosus and deep transverse perineal as well as levator ani and obturator internus L>R Prolapse Cystocele Grade 1 Contraction Ability Voluntary Contraction Moderate Voluntary Relaxation Weak Manual Muscle Testing Left 3 Manual Muscle Testing Right 3 Manual Muscle Testing Anterior 2 Manual Muscle Testing Posterior 3 PT-OP-Q Treatments Start: 03/08/20 10:06 Freq: Status: Active Protocol: Document 06/28/20 13:01 MB (Rec: 06/28/20 14:07 MB [id number]) Manual Therapy Treatment Other Other Manual Treatments Pt agrees to Counterstrain to assess and treat fascial tension and pt presents with tension in the following fascial systems: spinal medullary vein and spinal vein extension and PT treats stacks in these systems as well as cervical and cranial periosteal points. Suboccipital release. PT-OP-T Assessment and Plan Start: 03/08/20 10:06 Freq: Status: Active Protocol: Document 06/28/20 13:01 MB (Rec: 06/28/20 14:07 MB [id number]) Physical Therapy Assessment Goals Three Impairment Urgency Short Term Goal (STG) Davidellysonia will decrease her urgency so that she does not have nocturia. 05/28/20: Pt reports that she is getting up 1-2x/night to urinate. STG Duration 4 weeks Industrial Education Teacher Goal (LTG) Mayra will take the time to fully void her bladder to avoid urgency after voids. LTG Duration 8 weeks Two Impairment Pain Short Term Goal (STG) Mayra will use a dilator with 1/10 pain or less. 05/28/20: Pt could not tolerate dilator when tried earlier in treatment course. STG Duration 4 weeks Residential Goal (LTG) Mayra will work for 4 hours with 3/10 pain or less. 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 LTG Duration 8 weeks One Impairment Lifting Short Term Goal (STG) Mayra will lift 25# from floor to waist height while maintaining pelvic floor contraction without an increase in pain. 05/28/20: Not yet tried. STG Duration 4 weeks Assessment Summary Assessment Pt con't to tolerate Counterstrain well. Her presentation is multi- factorial and provoked by her work and emotional stress with the chronicity of the situation and inability to complete her work as needed at this time. Con't Counterstrain and pt is performing Buteyko breathing at home. PT does feel that there is sympathetic response that exacerbates pt presentation. Physical Therapy Plan Frequency and Duration Frequency of Treatment 1x/wk or biweekly Duration of Treatment 8 weeks Plan of Care Start Date 06/14/20 Plan of Care End Date 08/14/20 Therapeutic Interventions Therapeutic Interventions Home Exercise Program,Manual Therapy,Neuromuscular Re- education,Patient/Caregiver Education,Self-Care/Home Management,Sensory Integration ,Soft Tissue Mobilization, Taping,Therapeutic Activities, Therapeutic Exercises Modalities Cold Pack/Ice Massage,Hot Packs Next Visit Focus/Plan Next Note Type Treatment Note Next Visit Plan Con't Counterstrain
--- NOTE | 2020-07-12 16:16 | PT.OPDS ---
Current Diagnoses Overactive bladder (06/28/20) Other female genital prolapse (06/28/20) Pelvic and perineal pain (06/28/20) Acquired absence of uterus with remaining cervical stump (06/28/20) Visit Care Team Role Provider Type Sarita Antonio ND Primary Care Provider Non-Staff Specialty: Naturopathy Address: [address] [place] [address], [id number] Email: Piper Cowart MD Attending Provider Physician Referring Provider Specialty: SMOKING PIPE DRILLER AND THREADER Address: [address] [place] [address], [id number] Email: [email or web address] Visit Number Visit Number 12 Discharge Summary PT-OP-B Current Condition Start: 03/08/20 10:06 Freq: Status: Active Protocol: Document 03/08/20 12:45 AMB (Rec: 03/08/20 14:28 AMB [email or web address]) Current Condition History of Current Condition Onset Date February 2019 Current Complaints pelvic pain, urgency History of Current Condition Mayra had a hysterectomy for fibroids in February and rested for a while, and then went back to work. Her pain increased signficantly. 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 She describes it as a rawness in her pelvic floor that radiates into her abdomen. Does note urgency and burning with urination when pain is at its worst, when she does rest she feels better. Has avoided intercourse due to the pain. Personal Factors Other Personal Factors That May Effect Lives on [place]- has to Therapy/Recovery take ferry to get to PT PT-OP-C Subjective Start: 03/08/20 10:06 Freq: Status: Active Protocol: Document 06/28/20 13:01 MB (Rec: 06/28/20 14:07 MB [id number]) OP-PT Subjective Patient Comments Patient Comments I'm a little emotional today. I had my first vaccine this morning. I'm hormonal. It's June and I can't do a lot with my [employer] business. Pt states that it is hard that she can't get out and do anything. PT-OP-I Pelvic Floor Start: 03/08/20 10:06 Freq: Status: Active Protocol: Document 03/08/20 12:45 AMB (Rec: 03/08/20 15:45 AMB [email or web address]) Pelvic Floor Assessment Urine Pelvic Floor Surgery Yes: open hysterectomy Urinary Symptoms Dysuria,Urge Sensation, Dribbling After Urination,Pain Leaks Per Day denies Voiding Frequency every 2 hours Nocturia 2 Bowel Other Bowel Symptoms burning with bowel movements when painful Pelvic Clock Pelvic Clock 12-3 Hypertonic,Tenderness, Tightness Pelvic Clock 9-12 Hypertonic,Tenderness, Tightness Pelvic Clock Other Tenderness and tightness at ischiocavernosus and deep transverse perineal as well as levator ani and obturator internus L>R Prolapse Cystocele Grade 1 Contraction Ability Voluntary Contraction Moderate Voluntary Relaxation Weak Manual Muscle Testing Left 3 Manual Muscle Testing Right 3 Manual Muscle Testing Anterior 2 Manual Muscle Testing Posterior 3 PT-OP-T Assessment and Plan Start: 03/08/20 10:06 Freq: Status: Active Protocol: Document 07/12/20 16:14 MB (Rec: 07/12/20 16:15 MB [id number]) Physical Therapy Plan Discharge Physical Therapy Discharge Reasons No Longer Attending PT Discharge Comments Pt emailed to state that she has started to see Dr. Maile DO, and he recommended stop PT during his treatment course. She stated that she would like to cancel the rest of her appointments and he will re-order PT if necessary. Will d/c PT.
== END 2020-07-17 14:56 | disposition home or self-care (01) ==
LOC: PHYS 13:00
PROVIDERS: PCP Naturopath; Referring Provider Specialist; Visit Provider Specialist
DX: R10.2 Pelvic and perineal pain (principal); N32.81 Overactive bladder; Z90.711 Acquired absence of uterus with remaining cervical stump; N81.89 Other female genital prolapse
CPT/HCPCS: 97110; 97140; 97162

== ENCOUNTER → 2021-08-21 07:45 | Outpatient (CLI) | payer OTHER, MEDICAID, SELFPAY ==
[2019-03-11 14:10] VITALS: BMI 25.2
--- NOTE | 2021-08-21 07:47 | DI.RAD.S_ITS ---
PROCEDURE: XR THORACIC SPINE 3V INDICATIONS: Right sided rib pain TECHNIQUE: 3 views of the thoracic spine were acquired. COMPARISON: None. FINDINGS: Bones: No fractures or dislocations. No suspicious bony lesions. 12 pairs of ribs are noted, and appear intact where visualized. Mild degenerative disc changes noted throughout the thoracic spine. Soft tissues: No paravertebral stripe thickening. IMPRESSION: Mild multilevel degenerative disc disease. No fracture. No acute osseous lesion. If symptoms and/or clinical suspicion for pathology persists, evaluation with MRI should be considered for further assessment. Dictated by: Sara Galvez MD, PhD on 08/21/2021 at 8:54 Approved by: Sara Galvez MD, PhD on 08/21/2021 at 8:55
--- NOTE | 2021-08-21 07:47 | DI.RAD.S_ITS ---
PROCEDURE: XR RIBS RT MIN 3V W CXR 1V INDICATIONS: Right sided rib pain TECHNIQUE: 2 views of the right ribs were acquired, along with a single view chest. COMPARISON: None. FINDINGS: Surgical changes and devices: None. Bones and chest wall: No fractures or dislocations. No suspicious bony lesions. Overlying soft tissues appear unremarkable. Lungs and pleura: No pleural effusions or pneumothorax. Lungs appear clear. Mediastinum: Mediastinal contours appear normal. Heart size is normal. IMPRESSION: No displaced rib fracture. Dictated by: Sara Galvez MD, PhD on 08/21/2021 at 8:55 Approved by: Sara Galvez MD, PhD on 08/21/2021 at 8:55
== END ==
PROVIDERS: PCP Family Medicine; Referring Provider Family Medicine; Visit Provider Family Medicine
DX: M99.02 Segmental and somatic dysfunction of thoracic region (principal); R07.81 Pleurodynia; M51.34 Other intervertebral disc degeneration, thoracic region
CPT/HCPCS: 71101; 72072

== ENCOUNTER → 2022-01-08 10:54 | Outpatient (CLI) | payer OTHER, MEDICAID, SELFPAY ==
[2021-12-13 11:07] VITALS: BMI 25.2
--- NOTE | 2022-01-08 10:56 | DI.US.S_ITS ---
PROCEDURE: US PELVIC COMPLETE INDICATIONS: PAIN TECHNIQUE: Real-time scanning was performed of the pelvic organs, with image documentation. Additional endovaginal scanning was necessary due to incomplete visualization of the adnexal and endometrial structures by transabdominal scanning. COMPARISON: None. FINDINGS: Hysterectomy. Right ovary measures 1.7 x 2.1 x 3.1 centimeters and is unremarkable. Left ovary measures 1.8 x 1.9 x 3.0 centimeters which is inclusive of an approximately 1.8 centimeter hypoechoic cyst the with some low-level internal echoes. No ovarian or adnexal mass otherwise. No free fluid. IMPRESSION: Minimally complex cyst in the left ovary likely a resolving hemorrhagic or other functional cyst. We strive to produce accurate, complete, and clear reports of imaging services. To assist us in improving patient care, this report was composed using standard report templates and voice recognition software. Therefore, it may contain abnormal punctuation, insertions and/or omissions. Occasional wrong-word or sound-alike substitutions may occur. Though we review the report and make efforts to correct it, we do recommend that the report be read carefully in proper context to recognize any text inaccuracies. Dictated by: Tom Smith M.D. on 01/08/2022 at 13:50 Approved by: Tom Smith M.D. on 01/08/2022 at 13:51
== END ==
PROVIDERS: Family Provider Family Medicine; PCP Family Medicine; Referring Provider Obstetrics & Gynecology; Visit Provider Obstetrics & Gynecology
DX: R10.2 Pelvic and perineal pain (principal); Z90.710 Acquired absence of both cervix and uterus
CPT/HCPCS: 76830; 76856; 93975

== ENCOUNTER → 2022-05-22 13:28 | Outpatient (CLI) | payer OTHER, MEDICAID, SELFPAY ==
[2021-12-13 11:07] VITALS: BMI 25.2
--- NOTE | 2022-05-22 | DI.MG.S_ITS ---
BILATERAL DIGITAL DIAGNOSTIC MAMMOGRAM 3D/2D: 05/22/2022 CLINICAL: Left breast pain. Baseline exam. No prior exams were available for comparison. There are scattered areas of fibroglandular density in both breasts (category b / 25%-50% glandular tissue). No significant masses, calcifications, or other findings are seen in either breast. IMPRESSION: NEGATIVE There is no mammographic evidence of malignancy. A 1 year screening mammogram is recommended. Based on the Tyrer Cuzick model (a risk assessment model) the patient's lifetime risk is 8.9% and her 10 year risk is 2.4%. According to the ACR, ACS, and NCCN guidelines, an annual breast MRI exam along with mammogram is recommended if the patient's lifetime risk is 20% or greater. This exam was interpreted at Station ID: [id number]. NOTE: For mammograms, a report in lay terms will be sent to the patient. Approximately 15% of breast malignancies will not be visualized mammographically. In the management of a palpable breast mass, a negative mammogram must not discourage biopsy of a clinically suspicious lesion. Electronically Signed By: Tom Smith M.D., jr/elizabet:05/22/2022 15:35:50 letter sent: Normal Exam ACR BI-RADS Category 1: Negative [id number]
== END ==
PROVIDERS: Family Provider Family Medicine; PCP Family Medicine; Referring Provider Family Medicine; Visit Provider Family Medicine
DX: N64.4 Mastodynia (principal)
CPT/HCPCS: 77066; G0279

== ENCOUNTER → 2023-01-04 08:44 | Outpatient (CLI) | payer OTHER, MEDICAID, SELFPAY ==
[2022-10-22 11:07] VITALS: BMI 25.2
--- NOTE | 2023-01-04 08:46 | DI.MRI.S_ITS ---
PROCEDURE: MR SHOULDER RT WO CON INDICATIONS: Right shoulder Pain not responding to physical therapy TECHNIQUE: Noncontrast oblique coronal T2 fast spin echo with fat saturation, oblique sagittal T1 spin echo and T2 fast spin echo with fat saturation, axial T1 spin echo and T2 fast spin echo with fat saturation through the shoulder. COMPARISON: None. FINDINGS: Image quality: Excellent. Rotator cuff: Low-grade articular and bursal surface partial thickness tear involving distal supraspinatus at its insertion on the humeral head is seen extending to musculotendinous junction. Distal infraspinatus tendinosis is seen. The subscapularis tendon is intact. No full-thickness rotator cuff tendon rupture. Sagittal images demonstrate no significant rotator cuff muscle atrophy. Bones and bursae: No bone marrow contusions or fractures. Moderate acromioclavicular joint osteoarthritic changes are seen with joint space narrowing and downward osteophyte formation depressing the musculotendinous junction of supraspinatus. The acromion demonstrates conventional anatomy, without an os acromiale. Small amount of subacromial subdeltoid bursal fluid is seen. Capsule and soft tissues: The right shoulder labrum is grossly intact. The long head of the biceps tendon demonstrates normal location and morphology. The rotator interval appears normal, without fibrosis. The coracohumeral ligament is normal in thickness. IMPRESSION: 1. Low-grade articular and bursal surface partial thickness tear involving distal supraspinatus extending to musculotendinous junction. Distal infraspinatus tendinosis. No full-thickness rotator cuff tendon rupture. 2. Onfv-ri-csbhadee acromioclavicular joint osteoarthritis. No fracture or dislocation. Small amount of subacromial subdeltoid bursal fluid. No loose bodies. 3. No gross focal labral tear. Dictated by: Braeden Perez M.D. on 01/05/2023 at 11:11 Approved by: Braeden Perez M.D. on 01/05/2023 at 11:14
== END ==
PROVIDERS: Family Provider Family Medicine; PCP Family Medicine; Referring Provider Family Medicine; Visit Provider Family Medicine
DX: M25.511 Pain in right shoulder (principal); G89.29 Other chronic pain; M75.111 Incomplete rotator cuff tear or rupture of right shoulder, not specified as traumatic; M19.011 Primary osteoarthritis, right shoulder
CPT/HCPCS: 73221

== ENCOUNTER → 2023-04-01 08:47 | Outpatient (CLI) | payer OTHER, MEDICAID, SELFPAY ==
[2022-10-22 11:07] VITALS: BMI 25.2
[2023-04-01 10:26] LABS: Cholesterol 237 mg/dL (140-199); HDL Cholesterol 54 mg/dL (40-60); LDL Cholesterol Calculated 145 mg/dL (<100); Triglycerides 189 mg/dL (35-150)
[2023-04-01 10:55] LABS: Free T3, Triiodothyronine Free 3.07 pg/mL (2.77-5.27)
[2023-04-01 11:13] LABS: Thyroid Stimulating Hormone 2.03 uIU/mL (0.47-4.68)
== END ==
PROVIDERS: Family Medicine; Family Provider Family Medicine; PCP Family Medicine; Referring Provider Family Medicine; Visit Provider Family Medicine
DX: E03.9 Hypothyroidism, unspecified (principal); E78.9 Disorder of lipoprotein metabolism, unspecified; Z79.899 Other long term (current) drug therapy
CPT/HCPCS: 36415; 80061; 84439; 84443; 84481

== ENCOUNTER → 2024-06-30 09:58 | Outpatient (CLI) | payer OTHER, SELFPAY ==
[2022-10-22 11:07] VITALS: BMI 25.2
[2024-06-30 13:24] LABS: Ferritin 37 ng/mL (11-264)
== END ==
PROVIDERS: Family Provider Family Medicine; PCP Family Medicine; Referring Provider Family Medicine; Visit Provider Family Medicine
DX: D50.9 Iron deficiency anemia, unspecified (principal)
CPT/HCPCS: 36415; 82728

== ENCOUNTER → 2024-07-27 16:23 | Outpatient (CLI) | payer OTHER, SELFPAY ==
[2024-07-27 15:59] VITALS: BMI 25.2
[2024-07-27 18:06] LABS: Vitamin D 25 Hydroxy (D3) 77.5 ng/mL (30.0-100.0)
[2024-07-27 18:24] LABS: Ferritin 46 ng/mL (11-264)
== END ==
PROVIDERS: Family Provider Family Medicine; PCP Family Medicine; Referring Provider Family Medicine; Visit Provider Family Medicine
DX: D50.9 Iron deficiency anemia, unspecified (principal)
CPT/HCPCS: 36415; 82306; 82728

== ENCOUNTER → 2024-12-14 14:13 | Outpatient (CLI) | payer OTHER, SELFPAY ==
[2024-07-27 15:59] VITALS: BMI 25.2
[2024-12-14 14:32] LABS: Add Manual Diff / Slide Review NO; Hematocrit 41.4 % (36-46); Hemoglobin 14.5 g/dL (12.0-16.0); Lymphocytes Absolute Auto 2800 /uL (1100-4500); Mean Corpuscular HGB Conc 35.1 % (30-36); Mean Corpuscular Hemoglobin 32.0 PG (26-34); Mean Corpuscular Volume 91.3 fL (80-100); Platelet Count 281 X10^3/uL (150-400)
[2024-12-14 15:27] LABS: Ferritin 58 ng/mL (11-264)
== END ==
PROVIDERS: Family Provider Family Medicine; PCP Family Medicine; Referring Provider Family Medicine; Visit Provider Family Medicine
DX: D50.9 Iron deficiency anemia, unspecified (principal)
CPT/HCPCS: 36415; 82728; 85025